=== PATIENT | male | born 1950 | race Caucasian/White ===

== ENCOUNTER 2017-02-22 17:50 | Inpatient (IN) ==
[2017-02-22] MEDS ORDERED: Naloxone 0.4 MG/ML INJ IVP PRN (20:21)
[2017-02-22] MEDS ORDERED: Ondansetron 4 MG/2 ML VIAL IVP PRN (20:21)
[2017-02-22] MEDS ORDERED: Dextrose Gel 15 GM/37.5 ML TUBE PO PRN ×2 (20:25)
[2017-02-22] MEDS ORDERED: Ipratropium/Albuterol Neb 3 ML IH PRN (20:25)
[2017-02-22] MEDS ORDERED: D5% in Water 1,000 ML IVC PRN (20:25)
[2017-02-22] MEDS ORDERED: *HR* Dextrose 50 % in Water (Syg) 50 ML SYRINGE IVP PRN (20:25)
--- NOTE | 2017-02-22 20:39 | Internal Med History&Physical ---
Date of Encounter: 02/22/17 Time of Encounter: 19:50 Assessment and Plan (1) Multifocal pneumonia Current visit: Yes Status: Acute CT findings from [place] [facility] positive for Multifocal PNA will continue broad spectrum IV abx (Vanco and Zosyn) f/u (2) Cirrhosis of liver Current visit: Yes Status: Chronic Pt reports of following a medical typist at [facility] will consult IR for paracentesis (day team to call IR) holding lasix and spironolactone at this time given ADRINE Qualifiers: Hepatic cirrhosis type: unspecified hepatic cirrhosis Ascites presence: with ascites Qualified Code(s): K74.60 - Unspecified cirrhosis of liver (3) Ascites Current visit: Yes Status: Acute secondary to cirrhosis of the liver last paracentesis was on 01.24.17 paracentesis by IR in am Qualifiers: Ascites type: other type Qualified Code(s): R18.8 - Other ascites (4) Acute kidney injury superimposed on chronic kidney disease Current visit: Yes Status: Acute Unclear of patient's baseline renal function noted to have worsening of creatinine as per [facility] records will hold Lasix, spironolactone at this time renally dose antibiotics closely monitor renal function, if deteriorates further, consult nephrology (5) Atrial fibrillation Current visit: Yes Status: Chronic Rate controlled with Metoprolol Anticoagulated with Eliquis holding eliquis at this time given report of positive stool occult at [place] Will repeat Stool occult consider GI evaluation if stool occult positive Pt reported of undergoing EGD last month which was negative for varices at that time. Qualifiers: Atrial fibrillation type: chronic Qualified Code(s): I48.2 - Chronic atrial fibrillation (6) DVT prophylaxis Current visit: Yes Status: Acute SCD (7) Hyperkalemia Current visit: Yes Status: Acute Pt reported of having K of 6.5 upon admission, repeat down to 5.5, received Kayxelate at [facility] prior to transfer currently has a rectal tube will continue to closely monitor (8) Anemia Current visit: Yes Status: Acute H&H low but acceptable no acute bleeding reported at this time will continue to closely monitor f/u stool occult, iron studies, vit B12, and folate Qualifiers: Anemia type: unspecified type Qualified Code(s): D64.9 - Anemia, unspecified (9) Obesity (BMI 30-39.9) Current visit: Yes Status: Chronic Internal Medicine - H&P: HPI Chief complaint: transfer from [place] for PNA Admitted From: Intrahospital Transfer Plans for Post Hospital Care: Home History of present illness: Mr. Romero is a 66 year old male with PMH Of cirrhosis of the liver, liver tumor , HTN, HLD, Afib on Eliquis, DM, CKD, and CVA with left sided weakness who was transferred to [facility] from [facility] [place] for management of multifocal PNA, worsening ascites. Pt reports of presenting to the [place] ER yesterday for shortness of breath and worsening abd pain secondary to ascites. Pt reports of having his last paracentesis on January 24, and reports of following with a medical typist at [facility] for his liver tumor. He is AAO x 3, saturating well on nasal cannula and denies any discomfort. Noted to have large ascites and will need paracentesis. Noted to be hypotensive but clinically asymptomatic. He denies any chest pain, fever, or chills at this time. Pt's code status is changed to DNR/DNI as per his wishes Labs from [place] prior to transfer: WBC: 5.4 PT: 11.8 Hgb: 10.0 INR: 1.13 Hct: 31.9 PTT: 26.8 Plt: 198 Na: 141 K: 5.5 Cl: 111 CO2: 17 BUN: 72 Crea: 3.03 (worsened from previous day: 2.75) Gluc: 94 Stool Occult: Positive CT abd/pelvis: -lg vol ascites -sm. b/l pleural effusions -patchy consolidations-multifocal pneumonia -cirrhosis with multiple small hypodense hepatic lesions, infiltrative mass, malignancy cannot be excluded on right lobe. MRI recommended. Past Med Surg Social Fam HX - Past Medical History Medical history: asthma, atrial fibrillation, cirrhosis, CVA, diabetes, hypertension, liver disease Psychiatric history: no psych history - Social History Smoking Status: Former smoker Alcohol use: none Drug use: none - Family History Mother Adopted: No Living Status: Cause of : HEART ATTACK Internal Medicine - H&P: Meds Albuterol Sulfate [Ventolin Hfa] 18 gm IH Q4HR PRN 02/22/17 [History] Amlodipine Besylate 10 mg PO DAILY 02/22/17 [History] Ammonium Lactate 140 gm TP DAILY 02/22/17 [History] Apixaban [Eliquis] 5 mg PO BID 02/22/17 [History] Atorvastatin Calcium 20 mg PO DAILY 02/22/17 [History] Budesonide/Formoterol 160/4.5 [Symbicort 160/4.5] 2 puff IH BIDR 02/22/17 [ History] Cetirizine HCl [Zyrtec] 10 mg PO DAILY 02/22/17 [History] FLUoxetine HCl [Prozac] 40 mg PO DAILY 02/22/17 [History] Famotidine [Pepcid] 20 mg PO DAILY 02/22/17 [History] Fluorouracil [Efudex] 1 gm TP BID 02/22/17 [History] Fluticasone Propionate Nasal [Flonase] 2 mcg NS DAILY 02/22/17 [History] Furosemide [Lasix] 20 mg PO BID 02/22/17 [History] Metoprolol [Lopressor] 25 mg PO BID 02/22/17 [History] Sotalol [Betapace] 80 mg PO Q12HR 02/22/17 [History] Spironolactone [Aldactone] 50 mg PO DAILY 02/22/17 [History] Tamsulosin [Flomax] 0.4 mg PO DAILY 02/22/17 [History] Triamcinolone Acetonide 15 gm TP BID 02/22/17 [History] 3 Allergy/AdvReac Type Severity Reaction Status Date / Time naproxen Allergy Intermediate BLISTERS Verified 02/22/17 20:29 All Systems PM: A 10-system review of systems was performed and is negative for pertinent findings except as documented above in the HPI. - Constitutional Constitutional: as per HPI - Constitutional General appearance: Present: A&O X 3, no acute distress, obese - Head Head exam: Present: atraumatic, normocephalic - Eye Eye exam: Present: conjuntiva pink, sclera anicteric - Respiratory Respiratory exam: Present: decreased breath sounds. Absent: respiratory distress, wheezes - Cardiovascular Cardiovascular exam: Present: RRR, +S1, +S2. Absent: diastolic murmur, systolic murmur - GI/Abdominal GI/Abdominal exam: Present: distended (large ascites with a positve fluid shift ), normal bowel sounds, soft, no peritoneal signs. Absent: tenderness - Extremities Exam Extremities exam: Present: warm, radial pulses palpable and symmetrical. Absent : calf tenderness, pedal edema - Neurological Exam Neurological exam: Present: alert, oriented X3
[2017-02-22] MEDS ORDERED: Vancomycin 1,000 MG in D5% in Water 250 ML IVPB SCH (21:00)
[2017-02-22] MEDS ORDERED: Piperacillin/Tazobactam 3.375 GM/200 ML BAG IVPB SCH (23:00)
[2017-02-23] MEDS ORDERED: Vancomycin 1,750 MG in D5% in Water 500 ML IVPB ONE (01:00)
[2017-02-23 03:52] LABS: Hematocrit 31.7 % (37.5-50.1); Immature Granulocytes % 0.3 % (0-4); Lymphocytes # 1.3 K/mcL (0.6-4.6); Lymphocytes % 19.6 %; Mean Corpuscular HGB Conc 31.5 g/dL (31.6-35.5); Mean Corpuscular Hemoglobin 28.7 pg (28.0-33.3); Mean Corpuscular Volume 91.1 fL (83.0-100.0); Mean Platelet Volume 10.7 fL (9.4-12.4); Monocytes # 0.6 K/mcL (0.0-1.3); Monocytes % 8.5 %; Neutrophils # 4.6 K/mcL (1.6-8.9); Platelet Count 191 K/mcL (140-400); Red Blood Count 3.48 M/mcL (4.19-5.50); Red Cell Distribution Width 17.3 % (11.5-14.5); Segmented Neutrophils % 71.6 %
[2017-02-23 04:29] LABS: Folate 7.6 ng/mL (3.0-16.0)
[2017-02-23 04:32] LABS: % Iron Saturation 30 % (20-55); Alanine Aminotransferase 29 Units/L (7-52); Albumin 2.8 g/dL (3.5-5.7); Albumin/Globulin Ratio 1.1 (1.1-2.2); Alkaline Phosphatase 511 Units/L (34-104); Aspartate Amino Transferase 80 Units/L (13-39); BUN/Creatinine Ratio 23 (6-26); Blood Urea Nitrogen 74 mg/dL (8-23); Calcium 7.8 mg/dL (8.6-10.3); Carbon Dioxide 18 mEq/L (23-29); Chloride 114 mEq/L (98-107); Globulin 2.5 g/dL (2.4-3.5); Glucose 113 mg/dL (70-105); Iron 45 mcg/dL (65-175); Magnesium 2.8 mg/dL (1.6-2.6); Osmolality,Calculated 311 (280-300); Phosphorous 4.5 mg/dL (2.7-4.5); Potassium 5.3 mEq/L (3.5-5.1); Sodium 139 mEq/L (136-145); Total Protein 5.3 g/dL (6.4-8.9); Transferrin 106 mg/dL (203-362); eGFR For African Americans 24 (> 60); eGFR For Non-African Americans 20 (> 60)
[2017-02-23 05:23] LABS: Ferritin > 1350 ng/ml (20-250)
[2017-02-23] MEDS: Insulin LISPRO 300 UNITS/3 ML VIAL SQ SCH ×5 (05:28→21:22)
[2017-02-23] MEDS: Budesonide/Formoterol 160/4.5 MDI IH SCH ×2 (07:37→20:39)
[2017-02-23] MEDS ORDERED: Aminoglycoside Consult 1 EACH MC ONE (08:05)
[2017-02-23] MEDS: Fluticasone Propionate Nasal 50 MCG/SPRAY BOTTLE NS SCH (08:23)
[2017-02-23] MEDS: Ammonium Lactate 30 APPL/225 GM BOTTLE TP SCH (08:23)
[2017-02-23] MEDS: FLUoxetine 20 MG CAPSULE PO SCH (08:24)
[2017-02-23] MEDS: Loratadine 10 MG TABLET PO SCH (08:24)
[2017-02-23] MEDS: Famotidine 20 MG TABLET PO SCH (08:24)
[2017-02-23] MEDS: FLUOROURACIL TP SCH ×2 (08:25→21:22)
[2017-02-23] MEDS ORDERED: amLODIPine 5 MG TABLET PO SCH (09:00)
--- NOTE | 2017-02-23 11:22 | Internal Med Progress Note ---
<Trenton Parkinson - Last Filed: 02/23/17 13:32> Date of Encounter: 02/23/17 Time of Encounter: 11:20 - Assessment and plan (1) Multifocal pneumonia Current Visit: Yes Status: Acute Assessment and plan: CT scan from [place] demonstrate multifocal PNA No leukocytosis VSS Diffuse rhonchi present Plan: Broad coverage with IV Vanocmycin and Zosyn Duonebs PAVAN Albuterol Nebs PRN (2) Cirrhosis of liver Current Visit: Yes Status: Chronic Assessment and plan: PT/INR/PTT at [facility] are 11.8/1.13/26.8 CT scan at [place] showing cirrhosis with multiple small hypodense hepatic lesions, infiltrative mass, malignancy cannot be excluded on right lobe. Pt reports of following a sanforizing machine operator at [facility] - Called office and spoke with digital production operator to have his specialist call me when available to discuss disposition Consulted IR for paracentesis - Will perform today Holding lasix and spironolactone at this time given ADRIEN Checking Ammonia level Qualifiers: Hepatic cirrhosis type: unspecified hepatic cirrhosis Ascites presence: with ascites Qualified Code(s): K74.60 - Unspecified cirrhosis of liver (3) Ascites Current Visit: Yes Status: Acute Assessment and plan: CT scan at [place] and physical exam demonstrate massive ascites Plan IR paracentesis performed today Qualifiers: Ascites type: other type Qualified Code(s): R18.8 - Other ascites (4) Acute kidney injury superimposed on chronic kidney disease Current Visit: Yes Status: Acute Assessment and plan: Unknown baseline renal function Cr trending 2.75 -> 3.01 -> 3.2 today With worsening kidney function, nephrology was consulted. Appreciate recommendations Continue to hold nephrotoxic agents Retroperitoneal kidney US ordered Labs - UA w/ Cx, protein electrophoresis, vit d, urine sodium, microalbumin and protein creatinine Plan for paracentesis today if ascites if worsening liver congestion and affecting kidneys Will recheck in the morning (5) Pressure ulcer, stage 1 Current Visit: Yes Status: Acute Assessment and plan: Conservative management Keep moisturized Pressure reduction Q2 hour turns Qualifiers: Pressure ulcer location: thigh Laterality: left Qualified Code(s): L89.221 - Pressure ulcer of left hip, stage 1 (6) Atrial fibrillation Current Visit: Yes Status: Chronic Assessment and plan: Holding anticoagulation d/t positive stool occult at [place] - Repeat Stool occult pending Continue Sotalol Telemetry Qualifiers: Atrial fibrillation type: chronic Qualified Code(s): I48.2 - Chronic atrial fibrillation (7) Hyperkalemia Current Visit: Yes Status: Acute Assessment and plan: K dropping well 6.5 -> 5.5 -> 5.[address] Will continue to monitor (8) Anemia Current Visit: Yes Status: Acute Assessment and plan: Hgb stable at 10.0. Unchanged from [place] yesterday Hemodynamically stable Likely d/t chronic disease with CKD Repeat stool occult pending - GI consult if positive - Recent EGD showed no esophageal varices Workup neg for folate or B12 deficiency Iron studies indicate chronic disease with his elevated ferritin from cirrhosis Will continue to monitor Qualifiers: Anemia type: unspecified type Qualified Code(s): D64.9 - Anemia, unspecified (9) Diarrhea Current Visit: Yes Status: Acute Assessment and plan: Rectal tube in place Ordered C diff Qualifiers: Diarrhea type: unspecified type Qualified Code(s): R19.7 - Diarrhea, unspecified (10) Obesity (BMI 30-39.9) Current Visit: Yes Status: Chronic (11) DVT prophylaxis Current Visit: Yes Status: Acute Assessment and plan: EPCDs, holding anticoagulation d/t positive stool occult at [place] - Subjective Interval history: Patient is admitted for mulitfocal PNA, ADRIEN and Ascites Patient is resting comfortably in bed this morning His SOB is mildly improved but still complains of abdominal discomfort with a "fullness" feeling No overnight events per nursing He denies any CP, fevers, chills, n/v, palpitations or GI issues - Constitutional Vitals: Temp Pulse Resp BP Pulse Ox 98.1 F 68 18 91/59 95 02/23/17 07:18 02/23/17 08:40 02/23/17 10:54 02/23/17 10:54 02/23/17 10:54 General appearance: Present: cooperative, A&O X 3, no acute distress, obese - Head Head exam: Present: atraumatic, normocephalic - Eye Eye exam: Present: EOMI, normal appearance, conjuntiva pink, sclera anicteric - ENT ENT exam: Present: mucous membranes moist - Neck Neck exam general surgery: Present: supple, trachea midline - Respiratory Respiratory exam: Present: rhonchi (scattered). Absent: accessory muscle use, chest wall tenderness, respiratory distress, wheezes, tachypnea - Cardiovascular Cardiovascular exam: Present: RRR, +S1, +S2 - GI/Abdominal GI/Abdominal exam: Present: diminished bowel sounds, distended, firm. Absent: guarding, tenderness - Expanded GI/Abdominal Exam GI/Abdominal exam expanded: Present: ascites - Extremities Exam Extremities exam: Present: pedal edema (trace), warm. Absent: calf tenderness, tenderness - Neurological Exam Neurological exam: Present: alert, oriented X3, no focal deficits - Psychiatric Psychiatric exam: Present: normal affect, normal mood - Skin Skin exam: Present: dry, warm. Absent: diaphoretic Additional comments: stage 1 pressure ulcer present on lateral left thigh Internal Medicine: Result - Labs CBC & Chem 7: 02/23/17 03:38 02/23/17 03:38 Labs: Short CBC 02/23/17 Range/Units 03:38 WBC 6.5 (4.3-11.1) K/mcL Hgb 10.0 L (12.9-16.9) g/dL Hct 31.7 L (37.5-50.1) % Plt Count 191 (140-400) K/mcL Neutrophils # 4.6 (1.6-8.9) K/mcL BMP 02/23/17 03:38 Sodium 139 Potassium 5.3 H Chloride 114 H Carbon Dioxide 18 L BUN 74 H Creatinine 3.20 H Glucose 113 H Calcium 7.8 L Liver Function 02/23/17 Range/Units 03:38 Total Bilirubin 1.0 (0.3-1.0) mg/dL AST 80 H (13-39) Units/L ALT 29 (7-52) Units/L Alkaline Phosphatase 511 H (34-104) Units/L Albumin 2.8 L (3.5-5.7) g/dL - VTE Documentation of Mechanical Device: Intermittent pneumatic compression device Consult Discharge Plan - Plan Referrals: Jose Alberto Benton, [facility] [Primary Care Provider] - <Jessika Vasquez - Last Filed: 02/23/17 14:46> Date of Encounter: 02/23/17 - Constitutional Vitals: Temp Pulse Resp BP Pulse Ox 97.9 F 67 20 97/69 93 02/23/17 11:00 02/23/17 14:08 02/23/17 14:08 02/23/17 12:34 02/23/17 14:08 Internal Medicine: Result - Labs CBC & Chem 7: 02/23/17 03:38 02/23/17 03:38 Labs: Short CBC 02/23/17 Range/Units 03:38 WBC 6.5 (4.3-11.1) K/mcL Hgb 10.0 L (12.9-16.9) g/dL Hct 31.7 L (37.5-50.1) % Plt Count 191 (140-400) K/mcL Neutrophils # 4.6 (1.6-8.9) K/mcL BMP 02/23/17 03:38 Sodium 139 Potassium 5.3 H Chloride 114 H Carbon Dioxide 18 L BUN 74 H Creatinine 3.20 H Glucose 113 H Calcium 7.8 L Liver Function 02/23/17 Range/Units 03:38 Total Bilirubin 1.0 (0.3-1.0) mg/dL AST 80 H (13-39) Units/L ALT 29 (7-52) Units/L Alkaline Phosphatase 511 H (34-104) Units/L Albumin 2.8 L (3.5-5.7) g/dL - Attending Attestation I examined this patient and my medical decision-making was reviewed with the Resident Physician Dr. Parkinson. I agree with the documented findings, disposition and treatment plan as described except to the extent set forth below. Mr. Romero is a 66 year old male with PMH Of cirrhosis of the liver, liver tumor , HTN, HLD, Afib on Eliquis, DM, CKD, and CVA with left sided weakness who was transferred to [facility] from [facility] for management of multifocal PNA, worsening ascites. Pt reports of having his last paracentesis on January 24, and reports of following with a sanforizing machine operator at [facility] for his liver tumor. He is still c/o SOB and ONEAL. Denied any CP. Gen: Mild distress due to distended abdomen, A, A, O x 3 Heart; S1S2+ RRR No murmurs Abd: Soft, NT, Distended Chest: Diminished BS b/l basal regions, No crackles a/p 1. Acute Multi focal Pneumonia Mostly bacterial..high risk for aspiration too cont empirical abx Zosyn d.c Vancomycin Cont Bronchodilators 2. Severe ascities 3. Hepatic tumor / Cirrhosis liver need urgent theraputic paracentesis Spoke to IR, planning on doing paracentesis later today will give him 75-100 Gm Albumin depending on how much fluid taken out 4. Paroxysmal A fib rate controlled held eliquis for Paracentesis 5. ADRIEN with ?? CKD-3 No previous labs to compare Nephro on board held diuretics
[2017-02-23] MEDS: Piperacillin/Tazobactam 3.375 GM/200 ML BAG IVPB SCH (12:44)
--- NOTE | 2017-02-23 12:57 | Nephrology Consult Note ---
Date of Encounter: 02/23/17 Time of Encounter: 12:54 Assessment and Plan (1) ADRIEN (acute kidney injury) Current Visit: Yes Status: Acute Patient with acute kidney injury. Baseline creatinine is unknown, but he and his deny being told they have kidney problems. The etiology at this time is likely intravascular volume depletion/pre-renal azotemia given his history of poor po intake and increased diarrhea. Will check UA, urine sodium/FeNa I recommend giving albumin with the paracentesis and avoiding large volume paracentesis for now (remove enough fluid for comfort). I also recommend adding Low volume intravenous saline. Although he doesn't meet criteria for hepato renal at this time, with his low blood pressure he may benefit from albumin and midodrine. Renal ultrasound ordered. Avoid nephrotoxins (hold diuretics). Adjust medications for renal function. Will add intravenous sodium bicarbonate for metabolic acidosis. (2) Anemia Current Visit: Yes Status: Acute Iron stores, vitamin b12 and folate are adequate. Monitor for bleeding. Qualifiers: Anemia type: unspecified type Qualified Code(s): D64.9 - Anemia, unspecified (3) Hyperkalemia Current Visit: Yes Status: Acute Mild Monitor for now. (4) Multifocal pneumonia Current Visit: Yes Status: Acute Per primary team. Antibiotics as needed. (5) Atrial fibrillation Current Visit: Yes Status: Chronic Rate is controlled. Qualifiers: Atrial fibrillation type: chronic Qualified Code(s): I48.2 - Chronic atrial fibrillation (6) Cirrhosis of liver Current Visit: Yes Status: Chronic Patient with ascites. Recommend low volume paracentesis with albumin secondary to his acute kidney injury. Qualifiers: Hepatic cirrhosis type: unspecified hepatic cirrhosis Ascites presence: with ascites Qualified Code(s): K74.60 - Unspecified cirrhosis of liver (7) Obesity (BMI 30-39.9) Current Visit: Yes Status: Chronic Per primary team. History of Present Illness - Reason for Consult Consult date: 02/23/17 Acute Kidney Injury - Chief Complaint ADRIEN - History of Present Illness Mr. Romero is a 66 yo man with a history of cirrhosis who transferred from an outside hospital for the management of worsening ascites. He was found to have acute kidney injury at the outside hospital that has gotten worse since his admission. The history was from the patient and his at his bedside. The patient has not been feeling well for about a week and has had decreased appetite with increased diarrhea. He denies nausea or vomiting. He has had increased lower extremity swelling and increased abdominal swelling. His review of systems otherwise is stable. Past Med Surg Social Fam HX - Past Medical History Medical history: asthma, atrial fibrillation, cirrhosis, CVA, diabetes, hypertension, liver disease Psychiatric history: no psych history - Social History Smoking Status: Former smoker Alcohol use: none Drug use: none - Family History Mother Adopted: No Living Status: Cause of : HEART ATTACK Medications and Allergies Albuterol Sulfate [Ventolin Hfa] 18 gm IH Q4HR PRN 02/22/17 [History] Amlodipine Besylate 10 mg PO DAILY 02/22/17 [History] Ammonium Lactate 140 gm TP DAILY 02/22/17 [History] Apixaban [Eliquis] 5 mg PO BID 02/22/17 [History] Atorvastatin Calcium 20 mg PO DAILY 02/22/17 [History] Budesonide/Formoterol 160/4.5 [Symbicort 160/4.5] 2 puff IH BIDR 02/22/17 [ History] Cetirizine HCl [Zyrtec] 10 mg PO DAILY 02/22/17 [History] FLUoxetine HCl [Prozac] 40 mg PO DAILY 02/22/17 [History] Famotidine [Pepcid] 20 mg PO DAILY 02/22/17 [History] Fluorouracil [Efudex] 1 gm TP BID 02/22/17 [History] Fluticasone Propionate Nasal [Flonase] 2 mcg NS DAILY 02/22/17 [History] Furosemide [Lasix] 20 mg PO BID 02/22/17 [History] Metoprolol [Lopressor] 25 mg PO BID 02/22/17 [History] Sotalol [Betapace] 80 mg PO Q12HR 02/22/17 [History] Spironolactone [Aldactone] 50 mg PO DAILY 02/22/17 [History] Tamsulosin [Flomax] 0.4 mg PO DAILY 02/22/17 [History] Triamcinolone Acetonide 15 gm TP BID 02/22/17 [History] 3 Allergy/AdvReac Type Severity Reaction Status Date / Time naproxen Allergy Intermediate BLISTERS Verified 02/22/17 20:29 Review of Systems All Systems: reviewed and no additional remarkable complaints except as stated ( as documented in the HPI.) Exam - Vital Signs Vital signs: Initial Vital Signs Temp Pulse Resp BP Pulse Ox 98.1 F 71 17 95/65 93 02/22/17 20:41 02/22/17 20:41 02/22/17 20:41 02/22/17 20:41 02/22/17 20:41 Vital Signs - Last 8 Hours Temp Pulse Resp BP Pulse Ox 02/23/17 12:36 64 02/23/17 12:34 64 20 97/69 95 02/23/17 11:00 97.9 F 64 23 83/68 95 02/23/17 10:54 18 91/59 95 02/23/17 08:40 68 02/23/17 07:37 20 93 02/23/17 07:18 98.1 F 69 20 87/56 93 02/23/17 05:06 97.7 F 74 18 93/56 92 02/23/17 05:00 88/53 Intake and Output 02/22/17 02/23/17 02/23/17 23:59 07:59 15:59 Intake Total 0 / 0 700 / 700 Output Total 0 / 0 20 / 20 265 / 265 Balance 0 / 0 680 / 680 -265 / -265 Intake: IV Fluids 700 / 700 Zosyn Premix 3.375 GM/200 ML 3. 200 / 200 375 gm In 200 ml @ 50 mls/hr IVPB Q8H [facility] Rx#:[id number] Vancocin 1,750 MG In Dextrose 5 500 / 500 % 500 ML @ 333.333 mls/hr IVPB ONCE ONE Rx#:[id number] Oral 0 / 0 0 / 0 Output: Stool 40 / 40 Catheter 0 / 0 20 / 20 225 / 225 Urethral ([place]) 50 / 50 Other: Weight 123 kg Blood Glucose* 104 101 106 - General Appearance General appearance: well-developed, well-nourished, chronically ill EENT: ATNC Neck: supple Respiratory: clear Cardiology: edema (2+ edema bilateral lower extremities. ), regular rate, regular rhythm Gastrointestinal: normoactive bowel sounds, no tenderness, obese, distended Integumentary: warm and dry Neurologic: alert and oriented x3 Musculoskeletal: no cyanosis Psychiatric: mood/affect appropriate Results - Lab Results 02/23/17 03:38 02/23/17 03:38 Most recent lab results Calcium 7.8 mg/dL (8.6-10.3) L 02/23/17 03:38 Phosphorus 4.5 mg/dL (2.7-4.5) 02/23/17 03:38 Magnesium 2.8 mg/dL (1.6-2.6) H 02/23/17 03:38 Consult Discharge Plan - Plan Referrals: Jose Alberto Benton CNP [Primary Care Provider] -
[2017-02-23] MEDS ORDERED: Vancomycin 1,250 MG in D5% in Water 250 ML IVPB SCH (13:00)
[2017-02-23] MEDS ORDERED: Albumin 25% 25gram/100mL 25 GM/100 ML IV.SOLN IVPB ONE (14:52)
--- NOTE | 2017-02-23 14:54 | IR Procedure Note ---
Date of procedure: 02/23/17 Consent Obtained: Verbal consent, Written consent Timeout: Correct patient and procedure verified, Correct site verified, Time out performed, Skin prep completed Local anesthetic: Lidocaine 1% Indications: Ascites Procedure Performed: Paracentesis Was there an activity assistant present: No Site/Technique: U/S guided paracentesis Results/Findings: Large ascites Estimated blood loss (cc): 2 Complications: None; Tolerated procedure well Post Procedure Treatment Plan: Continue inpatient care Specimen: serous ascites
[2017-02-23] MEDS ORDERED: Sodium Bicarbonate 150 MEQ in D5% in Water 1,000 ML IVC ONE (15:07)
[2017-02-23 16:20] LABS: Bilirubin,Urine Small (Negative); Blood,Urine Large (Negative); Clarity,Urine Turbid (Clear); Color,Urine Dark Yellow (Yellow); Glucose,Urine (UA) Normal (Normal); Ketones,Urine Negative (Negative); Leukocyte Esterase,Urine Moderate (Negative); Nitrite,Urine Negative (Negative); PH,Urine 5.5 pH Units (5.0-8.0); Protein,Urine 100 mg/dL (Neg-Trace); Specific Gravity,Urine 1.026 (1.010-1.025); Urobilinogen,Urine Normal (Normal)
[2017-02-23 16:23] LABS: Bacteria,Urine None Seen per hpf (None-Few); RBC,Urine 15-30 per hpf (0-3); Squamous Epithelial Cell,Urine Many per lpf (None-Few); WBC,Urine 30-50 per hpf (0-3)
[2017-02-23 16:42] LABS: Protein/Creatinine Ratio,Urine 0.59 mg/mg (0.00-0.20); Sodium, Urine 18.4 mEq/L
[2017-02-23] MEDS: Albumin 25% 25gram/100mL 25 GM/100 ML IV.SOLN IVPB SCH ×2 (19:42→23:37)
[2017-02-24] MEDS: Piperacillin/Tazobactam 3.375 GM/200 ML BAG IVPB SCH ×2 (01:20→11:42)
[2017-02-24] MEDS: Albumin 25% 25gram/100mL 25 GM/100 ML IV.SOLN IVPB SCH (03:55)
[2017-02-24 06:46] LABS: Eosinophils % 0.6 %; Hemoglobin 9.4 g/dL (12.9-16.9); Immature Granulocytes % 0.2 % (0-4); Lymphocytes % 19.4 %; Mean Corpuscular HGB Conc 32.4 g/dL (31.6-35.5); Mean Corpuscular Hemoglobin 29.4 pg (28.0-33.3); Mean Corpuscular Volume 90.6 fL (83.0-100.0); Mean Platelet Volume 10.8 fL (9.4-12.4); Monocytes # 0.3 K/mcL (0.0-1.3); Monocytes % 6.7 %; Neutrophils # 3.6 K/mcL (1.6-8.9); Platelet Count 132 K/mcL (140-400); Red Cell Distribution Width 17.2 % (11.5-14.5); Segmented Neutrophils % 73.1 %
[2017-02-24 07:25] LABS: Albumin/Globulin Ratio 1.6 (1.1-2.2); Bilirubin,Total 1.3 mg/dL (0.3-1.0); Calcium 7.6 mg/dL (8.6-10.3); Globulin 1.9 g/dL (2.4-3.5); Potassium 4.8 mEq/L (3.5-5.1); Total Protein 4.9 g/dL (6.4-8.9)
--- NOTE | 2017-02-24 07:40 | Internal Med Progress Note ---
<Trenton Parkinson - Last Filed: 02/24/17 13:54> Date of Encounter: 02/24/17 Time of Encounter: 07:40 - Assessment and plan (1) Multifocal pneumonia Current Visit: Yes Status: Acute Assessment and plan: CT scan from [place] demonstrate multifocal PNA No leukocytosis VSS Bibasilar crackles present Plan: De-escalating to only Zosyn Duonebs PAVAN Albuterol Nebs PRN Clinically improving (2) Cirrhosis of liver Current Visit: Yes Status: Chronic Assessment and plan: PT/INR/PTT at [place] are 11.8/1.13/26.8 CT scan at [place] showing cirrhosis with multiple small hypodense hepatic lesions, infiltrative mass, malignancy cannot be excluded on right lobe. Pt reports of following a pump room operator at [facility] - Called office and spoke with iron launder operator to have his specialist call me when available to discuss disposition Paracentesis yesterday - 15L off [place]monia trending down 60 ->55 Qualifiers: Hepatic cirrhosis type: unspecified hepatic cirrhosis Ascites presence: with ascites Qualified Code(s): K74.60 - Unspecified cirrhosis of liver (3) Ascites Current Visit: Yes Status: Acute Assessment and plan: Paracentesis was performed by IR yesterday 15,000cc peritoneal fluid was removed 100g Albumin was given Qualifiers: Ascites type: other type Qualified Code(s): R18.8 - Other ascites (4) Acute kidney injury superimposed on chronic kidney disease Current Visit: Yes Status: Acute Assessment and plan: Unknown baseline renal function Cr trending 2.75 -> 3.01 -> 3.2 -> 3.28 today Nephrology was consulted. Appreciate recommendations Continue to hold nephrotoxic agents Retroperitoneal kidney US unremarkable without hydronephrosis FENa 0.26 and urine specific gravity elevated - Adding IVF (5) Pressure ulcer, stage 1 Current Visit: Yes Status: Acute Assessment and plan: Conservative management Keep moisturized Pressure reduction Q2 hour turns Qualifiers: Pressure ulcer location: thigh Laterality: left Qualified Code(s): L89.221 - Pressure ulcer of left hip, stage 1 (6) Atrial fibrillation Current Visit: Yes Status: Chronic Assessment and plan: Restarting eliquis Continue Sotalol Telemetry HR NSR in 70s Qualifiers: Atrial fibrillation type: chronic Qualified Code(s): I48.2 - Chronic atrial fibrillation (7) Hyperkalemia Current Visit: Yes Status: Acute Assessment and plan: K dropping well 6.5 -> 5.5 -> 5.3 -> 4.8 D/c rectal tube Will continue to monitor (8) Anemia Current Visit: Yes Status: Acute Assessment and plan: Hgb stable at 9.4 Hemodynamically stable Likely d/t chronic disease with CKD Repeat stool occult negative Workup neg for folate or B12 deficiency Iron studies indicate chronic disease with his elevated ferritin from cirrhosis Will continue to monitor Qualifiers: Anemia type: unspecified type Qualified Code(s): D64.9 - Anemia, unspecified (9) Obesity (BMI 30-39.9) Current Visit: Yes Status: Chronic (10) DVT prophylaxis Current Visit: Yes Status: Acute Assessment and plan: EPCDs, restarting eliquis - Subjective Interval history: Patient is admitted for mulitfocal PNA, ADRIEN and Ascites Patient is resting comfortably in bed this morning His SOB is moderately improved and feels much better after having 15L peritoneal fluid removed No overnight events per nursing He denies any CP, fevers, chills, n/v, palpitations or GI issues - Constitutional Vitals: Temp Pulse Resp BP Pulse Ox 97.8 F 72 17 116/75 93 02/24/17 04:21 02/24/17 04:21 02/24/17 04:21 02/24/17 04:21 02/24/17 04:21 General appearance: Present: cooperative, A&O X 3, no acute distress, obese - Head Head exam: Present: atraumatic, normocephalic - Eye Eye exam: Present: EOMI, normal appearance, conjuntiva pink, sclera anicteric - ENT ENT exam: Present: mucous membranes moist - Neck Neck exam general surgery: Present: supple, trachea midline - Respiratory Respiratory exam: Absent: respiratory distress, wheezes Additional comments: bibasilar crackles - Cardiovascular Cardiovascular exam: Present: RRR, +S1 - GI/Abdominal GI/Abdominal exam: Present: diminished bowel sounds, distended, soft. Absent: tenderness - Expanded GI/Abdominal Exam GI/Abdominal exam expanded: Present: ascites - Extremities Exam Extremities exam: Present: pedal edema (1+ pitting), warm. Absent: tenderness - Neurological Exam Neurological exam: Present: alert, oriented X3, no focal deficits - Psychiatric Psychiatric exam: Present: normal affect, normal mood - Skin Skin exam: Present: dry, warm Additional comments: stage 1 pressure ulcer present on lateral left thigh Internal Medicine: Result - Labs CBC & Chem 7: 02/24/17 06:37 02/24/17 06:37 Labs: Short CBC 02/24/17 Range/Units 06:37 WBC 5.0 (4.3-11.1) K/mcL Hgb 9.4 L (12.9-16.9) g/dL Hct 29.0 L (37.5-50.1) % Plt Count 132 L (140-400) K/mcL Neutrophils # 3.6 (1.6-8.9) K/mcL BMP 02/24/17 06:37 Sodium 139 Potassium 4.8 Chloride 111 H Carbon Dioxide 19 L BUN 76 H Creatinine 3.28 H Glucose 93 Calcium 7.6 L Liver Function 02/24/17 Range/Units 06:37 Total Bilirubin 1.3 H (0.3-1.0) mg/dL AST 93 H (13-39) Units/L ALT 40 (7-52) Units/L Alkaline Phosphatase 474 H (34-104) Units/L Albumin 3.0 L (3.5-5.7) g/dL Urine 02/23/17 Range/Units 15:39 Urine Color Dark Yellow (Yellow) Urine Clarity Turbid A (Clear) Urine pH 5.5 (5.0-8.0) pH Units Ur Specific [place] 1.026 H (1.010-1.025) Urine Protein 100 H (Neg-Trace) mg/dL Urine Glucose (UA) Normal (Normal) mg/dL - Impressions Impressions Paracentesis Ultrasound 02/23/17 00:00 IMPRESSION: Successful ultrasound guided paracentesis. D/ / Paulino Basurto MD / Paulino Basurto MD Interpreting Provider: Paulino Basurto MD Retroperitoneum Ultrasound 02/23/17 14:12 IMPRESSION: No hydronephrosis. Incidentally noted is a cirrhotic appearance of the liver with ascites in the upper quadrant bilaterally. D/ / 02/23/2017 17:35:56 Mike Manzano MD / curt Interpreting Provider: Mike Manzano MD - VTE Documentation of Mechanical Device: Intermittent pneumatic compression device Consult Discharge Plan - Plan Referrals: Jose Alberto Benton, FILLING [employer] [Primary Care Provider] - <Jessika Vasquez - Last Filed: 02/24/17 14:52> Date of Encounter: 02/24/17 - Constitutional Vitals: Temp Pulse Resp BP Pulse Ox 97.6 F 65 18 68/49 94 02/24/17 11:52 02/24/17 13:51 02/24/17 13:51 02/24/17 13:51 02/24/17 13:51 Internal Medicine: Result - Labs CBC & Chem 7: 02/24/17 06:37 02/24/17 06:37 Labs: Short CBC 02/24/17 Range/Units 06:37 WBC 5.0 (4.3-11.1) K/mcL Hgb 9.4 L (12.9-16.9) g/dL Hct 29.0 L (37.5-50.1) % Plt Count 132 L (140-400) K/mcL Neutrophils # 3.6 (1.6-8.9) K/mcL BMP 02/24/17 06:37 Sodium 139 Potassium 4.8 Chloride 111 H Carbon Dioxide 19 L BUN 76 H Creatinine 3.28 H Glucose 93 Calcium 7.6 L Liver Function 02/24/17 Range/Units 06:37 Total Bilirubin 1.3 H (0.3-1.0) mg/dL AST 93 H (13-39) Units/L ALT 40 (7-52) Units/L Alkaline Phosphatase 474 H (34-104) Units/L Albumin 3.0 L (3.5-5.7) g/dL Urine 02/23/17 Range/Units 15:39 Urine Color Dark Yellow (Yellow) Urine Clarity Turbid A (Clear) Urine pH 5.5 (5.0-8.0) pH Units Ur Specific [place] 1.026 H (1.010-1.025) Urine Protein 100 H (Neg-Trace) mg/dL Urine Glucose (UA) Normal (Normal) mg/dL - Impressions Impressions Paracentesis Ultrasound 02/23/17 00:00 IMPRESSION: Successful ultrasound guided paracentesis. D/ / Paulino Basurto MD / Paulino Basurto MD Interpreting Provider: Paulino Basurto MD Retroperitoneum Ultrasound 02/23/17 14:12 IMPRESSION: No hydronephrosis. Incidentally noted is a cirrhotic appearance of the liver with ascites in the upper quadrant bilaterally. D/ / 02/23/2017 17:35:56 Mike Manzano MD / curt Interpreting Provider: Mike Manzano MD - Attending Attestation I examined this patient and my medical decision-making was reviewed with the Resident Physician Dr. Parkinson. I agree with the documented findings, disposition and treatment plan as described except to the extent set forth below. Mr. Romero is a 66 year old male with PMH Of cirrhosis of the liver, liver tumor , HTN, HLD, Afib on Eliquis, DM, CKD, and CVA with left sided weakness who was transferred to [facility] from [facility] for management of multifocal PNA, worsening ascites. Pt reports of having his last paracentesis on January 24, and reports of following with a pump room operator at [facility] for his liver tumor. He is still c/o SOB and ONEAL. Denied any CP. Gen: Mild distress due to distended abdomen, A, A, O x 3 Heart; S1S2+ RRR No murmurs Abd: Soft, NT, Distended Chest: Diminished BS b/l basal regions, No crackles a/p 1. Acute Multi focal Pneumonia Mostly bacterial..high risk for aspiration too cont empirical abx Zosyn Cont Bronchodilators 2. Severe ascities 3. Hepatic tumor / Cirrhosis liver s/p Paracentesis - removed 15 lit fluids Recieved 100gm Albumin stable vitals Will call his GI Dr. Luigi Vasques in AM regarding further care of plan 4. Paroxysmal A fib rate controlled with Sotalol d/c Metoprolol resume ELiquis 5. ADRIEN with ?? CKD-3 No previous labs to compare Cr trending high Nephro on board held diuretics cont IV hydration
[2017-02-24] MEDS: Insulin LISPRO 300 UNITS/3 ML VIAL SQ SCH ×4 (08:03→21:07)
[2017-02-24] MEDS: FLUOROURACIL TP SCH ×2 (08:03→21:30)
[2017-02-24] MEDS: FLUoxetine 20 MG CAPSULE PO SCH (08:23)
[2017-02-24] MEDS: Famotidine 20 MG TABLET PO SCH (08:24)
[2017-02-24] MEDS: Loratadine 10 MG TABLET PO SCH (08:25)
[2017-02-24] MEDS: Fluticasone Propionate Nasal 50 MCG/SPRAY BOTTLE NS SCH (08:26)
[2017-02-24] MEDS: Ammonium Lactate 30 APPL/225 GM BOTTLE TP SCH (08:27)
[2017-02-24] MEDS: Budesonide/Formoterol 160/4.5 MDI IH SCH ×2 (08:42→22:33)
--- NOTE | 2017-02-24 11:54 | Nephrology Progress Note ---
Date of Encounter: 02/24/17 Time of Encounter: 11:52 - Assessment and Plan (1) ADRIEN (acute kidney injury) Current Visit: Yes Status: Acute Renal function stable after paracentesis. Continue to follow to see if renal function starts to improve. Avoid nephrotoxins. Adjust medications for renal function. Not likely hepatorenal at this point. Continue to follow. (2) Anemia Current Visit: Yes Status: Acute Per primary team. Qualifiers: Anemia type: unspecified type Qualified Code(s): D64.9 - Anemia, unspecified (3) Hyperkalemia Current Visit: Yes Status: Acute Resolved. Follow potassium level. (4) Multifocal pneumonia Current Visit: Yes Status: Acute Per primary team. (5) Atrial fibrillation Current Visit: Yes Status: Chronic Heart rate is controlled. Qualifiers: Atrial fibrillation type: chronic Qualified Code(s): I48.2 - Chronic atrial fibrillation (6) Cirrhosis of liver Current Visit: Yes Status: Chronic With ascites. S/p paracentesis. Not encephalopathic. Qualifiers: Hepatic cirrhosis type: unspecified hepatic cirrhosis Ascites presence: with ascites Qualified Code(s): K74.60 - Unspecified cirrhosis of liver (7) Obesity (BMI 30-39.9) Current Visit: Yes Status: Chronic outpatient management. Subjective Principal diagnosis: ADRIEN Interval history: Patient seen. He was eating lunch. No new complaint. He feels better after paracentesis. Objective - Vital Signs Vital signs: Vital Signs Temp Pulse Resp BP Pulse Ox 02/24/17 10:01 71 18 96 02/24/17 08:13 73 02/24/17 08:08 73 16 106/68 93 02/24/17 07:55 98.4 F 77 16 110/68 93 02/24/17 04:21 97.8 F 72 17 116/75 93 02/24/17 00:09 97.7 F 82 18 110/76 94 02/23/17 22:25 69 18 103/68 93 02/23/17 20:40 18 94 02/23/17 20:22 97.9 F 73 17 108/72 95 02/23/17 18:03 97.8 F 72 16 99/58 94 02/23/17 17:52 69 18 96/53 02/23/17 17:41 70 02/23/17 15:57 67 18 97/62 95 02/23/17 15:29 69 16 87/57 95 02/23/17 15:24 69 16 87/57 95 02/23/17 14:08 67 20 93 02/23/17 12:36 64 02/23/17 12:34 64 20 97/69 95 Intake and Output 02/23/17 02/24/17 02/24/17 23:59 07:59 15:59 Intake Total 1480 / 1480 2390 / 2390 480 / 480 Output Total 145 / 145 920 / 920 245 / 245 Balance 1335 / 1335 1470 / 1470 235 / 235 Intake: IV Fluids 300 / 300 1500 / 1500 Sodium Bicarbonate 150 MEQ In 1100 / 1100 Dextrose 5% 1,000 ML @ 100 mls/ hr IVC .[id number] [facility] Rx#: [id number] Flexbumin 25 gm In 100 ml @ 60 100 / 100 200 / 200 mls/hr IVPB Q4HR [facility] Rx#: [id number] Zosyn Premix 3.375 GM/200 ML 3. 200 / 200 200 / 200 375 gm In 200 ml @ 50 mls/hr IVPB Q12H [facility] Rx#:[id number] Oral 1180 / 1180 890 / 890 480 / 480 Output: Catheter 145 / 145 920 / 920 245 / 245 Urethral ([place]) 45 / 45 Other: Meal Dinner Breakfast Percent of Meal Consumed 15% 100% Weight 122.5 kg Blood Glucose* 133 100 100 Patient Weight 02/24/17 23:59 Weight 122.5 kg - General Appearance General appearance: Present: well-developed, well-nourished, obese EENT: Present: ATNC Neck: Present: supple Respiratory: Present: clear Cardiology: Present: edema, regular rate Gastrointestinal: Present: normoactive bowel sounds, no tenderness, obese, distended (decreased distension. ) Integumentary: Present: warm and dry Neurologic: Present: alert and oriented x3 Musculoskeletal: Present: no cyanosis Psychiatric: Present: mood/affect appropriate - Lab 02/24/17 06:37 02/24/17 06:37 Most recent lab results Calcium 7.6 mg/dL (8.6-10.3) L 02/24/17 06:37 Phosphorus 4.5 mg/dL (2.7-4.5) 02/23/17 03:38 Magnesium 2.8 mg/dL (1.6-2.6) H 02/23/17 03:38 Urine Creatinine 170 mg/dL 02/23/17 15:39 Urine Sodium 18.4 mEq/L 02/23/17 15:39 Urine Total Protein 101 mg/dL 02/23/17 15:39 - VTE Documentation of Mechanical Device: Intermittent pneumatic compression device Consult Discharge Plan - Plan Referrals: Jose Alberto Benton, BATT PACKER [Primary Care Provider] -
[2017-02-24] MEDS: 0.9 % Sodium Chloride 1,000 ML IVC SCH ×2 (14:03→23:58)
[2017-02-25] MEDS: Piperacillin/Tazobactam 3.375 GM/200 ML BAG IVPB SCH ×2 (00:50→12:32)
[2017-02-25 04:42] LABS: Basophils % 0.2 %; Eosinophils % 0.5 %; Hematocrit 32.8 % (37.5-50.1); Hemoglobin 10.5 g/dL (12.9-16.9); Immature Granulocytes % 0.3 % (0-4); Lymphocytes % 16.8 %; Mean Corpuscular Hemoglobin 28.8 pg (28.0-33.3); Mean Corpuscular Volume 90.1 fL (83.0-100.0); Monocytes # 0.4 K/mcL (0.0-1.3); Monocytes % 6.7 %; Neutrophils # 4.4 K/mcL (1.6-8.9); Platelet Count 146 K/mcL (140-400); Red Blood Count 3.64 M/mcL (4.19-5.50); Red Cell Distribution Width 17.2 % (11.5-14.5); Segmented Neutrophils % 75.5 %
[2017-02-25 05:07] LABS: Albumin 2.7 g/dL (3.5-5.7); Albumin/Globulin Ratio 1.4 (1.1-2.2); Bilirubin,Total 1.2 mg/dL (0.3-1.0); Calcium 7.3 mg/dL (8.6-10.3); Potassium 4.9 mEq/L (3.5-5.1); Total Protein 4.7 g/dL (6.4-8.9)
[2017-02-25] MEDS: Insulin LISPRO 300 UNITS/3 ML VIAL SQ SCH ×4 (07:58→21:19)
[2017-02-25] MEDS: FLUOROURACIL TP SCH ×2 (07:59→21:02)
[2017-02-25] MEDS: Loratadine 10 MG TABLET PO SCH (08:17)
[2017-02-25] MEDS: Famotidine 20 MG TABLET PO SCH (08:17)
[2017-02-25] MEDS: FLUoxetine 20 MG CAPSULE PO SCH (08:17)
[2017-02-25] MEDS: Ammonium Lactate 30 APPL/225 GM BOTTLE TP SCH (08:18)
[2017-02-25] MEDS: Fluticasone Propionate Nasal 50 MCG/SPRAY BOTTLE NS SCH (08:18)
[2017-02-25] MEDS: 0.9 % Sodium Chloride 1,000 ML IVC SCH (10:14)
[2017-02-25] MEDS: Budesonide/Formoterol 160/4.5 MDI IH SCH ×2 (10:39→20:18)
[2017-02-25] MEDS ORDERED: Sodium Bicarbonate 150 MEQ in D5% in Water 1,000 ML IVC SCH (14:15)
[2017-02-25] MEDS ORDERED: Albumin 25% 25gram/100mL 25 GM/100 ML IV.SOLN IVPB ONE (14:17)
--- NOTE | 2017-02-25 14:19 | Nephrology Progress Note ---
Date of Encounter: 02/25/17 Time of Encounter: 14:17 - Assessment and Plan (1) ADRIEN (acute kidney injury) Current Visit: Yes Status: Acute Renal function stable after paracentesis. Continue to follow to see if renal function starts to improve. Avoid nephrotoxins. Adjust medications for renal function. Not likely hepatorenal at this point. Continue to follow. (2) Anemia Current Visit: Yes Status: Acute Per primary team. Qualifiers: Anemia type: unspecified type Qualified Code(s): D64.9 - Anemia, unspecified (3) Hyperkalemia Current Visit: Yes Status: Acute Resolved. Follow potassium level. (4) Multifocal pneumonia Current Visit: Yes Status: Acute Per primary team. (5) Atrial fibrillation Current Visit: Yes Status: Chronic Heart rate is controlled. Qualifiers: Atrial fibrillation type: chronic Qualified Code(s): I48.2 - Chronic atrial fibrillation (6) Cirrhosis of liver Current Visit: Yes Status: Chronic With ascites. S/p paracentesis. Not encephalopathic. Qualifiers: Hepatic cirrhosis type: unspecified hepatic cirrhosis Ascites presence: with ascites Qualified Code(s): K74.60 - Unspecified cirrhosis of liver (7) Obesity (BMI 30-39.9) Current Visit: Yes Status: Chronic outpatient management. Subjective Principal diagnosis: ADRIEN Interval history: Patient seen. He was eating lunch. No new complaint. He feels better after paracentesis. Objective - Vital Signs Vital signs: Vital Signs Temp Pulse Resp BP Pulse Ox 02/25/17 12:26 72 18 95 02/25/17 11:26 98.3 F 72 18 81/52 96 02/25/17 10:39 18 97 02/25/17 10:01 74 18 98 02/25/17 08:08 72 02/25/17 08:05 70 16 95 02/25/17 07:32 97.9 F 69 16 100/68 96 02/25/17 05:20 71 88/61 02/25/17 03:50 74 02/25/17 03:44 97.6 F 71 18 94/62 97 02/25/17 00:00 69 02/24/17 23:48 97.6 F 69 16 94/61 96 02/24/17 22:33 16 95 02/24/17 21:18 74 02/24/17 19:50 97.8 F 69 17 89/59 97 02/24/17 18:28 73 18 88/57 95 02/24/17 16:05 97.5 F L 68 16 88/57 96 Intake and Output 02/24/17 02/25/17 02/25/17 23:59 07:59 15:59 Intake Total 1120 / 1120 400 / 400 1240 / 1240 Output Total 720 / 720 125 / 125 500 / 500 Balance 400 / 400 275 / 275 740 / 740 Intake: IV Fluids 1000 / 1000 400 / 400 1000 / 1000 0.9 % Sodium Chloride 1,000 ML 1000 / 1000 1000 / 1000 @ 100 mls/hr IVC .Q10H [facility] Rx#: [id number] Zosyn Premix 3.375 GM/200 ML 3. 400 / 400 375 gm In 200 ml @ 50 mls/hr IVPB Q12H [facility] Rx#:[id number] Oral 120 / 120 240 / 240 Output: Stool 100 / 100 Catheter 620 / 620 125 / 125 500 / 500 Urethral ([place]) 180 / 180 Other: Meal Dinner Lunch Percent of Meal Consumed 50% 50% Stool Size Moderate Moderate Stool Consistency loose loose liquid liquid Stool Color Green Green Weight 116.7 kg Blood Glucose* 112 92 90 Patient Weight 02/25/17 23:59 Weight 116.7 kg - General Appearance General appearance: Present: well-developed, well-nourished, obese EENT: Present: ATNC Neck: Present: supple Cardiology: Present: regular rate Integumentary: Present: warm and dry Neurologic: Present: alert and oriented x3 Psychiatric: Present: mood/affect appropriate - Lab 02/25/17 04:27 02/25/17 04:27 Most recent lab results Calcium 7.3 mg/dL (8.6-10.3) L 02/25/17 04:27 Phosphorus 4.5 mg/dL (2.7-4.5) 02/23/17 03:38 Magnesium 2.8 mg/dL (1.6-2.6) H 02/23/17 03:38 Urine Creatinine 170 mg/dL 02/23/17 15:39 Urine Sodium 18.4 mEq/L 02/23/17 15:39 Urine Total Protein 101 mg/dL 02/23/17 15:39 - VTE Documentation of Mechanical Device: Intermittent pneumatic compression device Consult Discharge Plan - Plan Referrals: Jose Alberto Benton, [employer] [Primary Care Provider] - ()
--- NOTE | 2017-02-25 14:44 | Internal Med Progress Note ---
<GildardoPaulino whitley - Last Filed: 02/25/17 15:05> Date of Encounter: 02/25/17 Time of Encounter: 14:41 - Assessment and plan (1) Multifocal pneumonia Current Visit: Yes Status: Acute Assessment and plan: - CT scan from [place] demonstrate multifocal PNA - Normal WBC of 5.8 this morning - VSS. Currently tolerating room air with oxygen saturation in mid 90s - Bilateral decreased breath sounds. no reports of cough, fevers, chills per patient Plan: - Continue Zosyn day #3. We will likely transition to Augmentin on discharge. - Duonebs PAVAN, Albuterol Nebs PRN - Clinically improving (2) Cirrhosis of liver Current Visit: Yes Status: Chronic Assessment and plan: - PT/INR/PTT at [place] are 11.8/1.13/26.8 - CT scan at [place] showing cirrhosis with multiple small hypodense hepatic lesions, infiltrative mass, malignancy cannot be excluded on right lobe. - Pt reports of following a boot repairer at [facility] - Spoke with Dr. Vasques this afternoon, states he can follow up as outpatient for biopsy. - Paracentesis 02/24/16, - 15L off. Received 100 mg Albumin following procedure. Has been borderline hypotensive since. Most recently. 88/51. - Ammonia trending down 60 ->55 Plan - Follow up as outpatient with Dr. Vasques - Carefully monitor BP following paracentesis. - Will give additional 100 mg albumin this afternoon Qualifiers: Hepatic cirrhosis type: unspecified hepatic cirrhosis Ascites presence: with ascites Qualified Code(s): K74.60 - Unspecified cirrhosis of liver (3) Ascites Current Visit: Yes Status: Acute Assessment and plan: - As above for cirrhosis - Paracentesis was performed by IR yesterday - 15,000cc peritoneal fluid was removed - 100g Albumin was given, will give additional 100g Qualifiers: Ascites type: other type Qualified Code(s): R18.8 - Other ascites (4) Acute kidney injury superimposed on chronic kidney disease Current Visit: Yes Status: Acute Assessment and plan: Renal function as of January 201711/03.27 per Social Science Analyst. - Cr trending 2.75 -> 3.01 -> 3.2 -> 3.28 -> 3.17 today - May be secondary to intravascular depletion from paracentesis and ascites. Plan - Nephrology was consulted. Appreciate recommendations - Continue to hold nephrotoxic agents - Retroperitoneal kidney US unremarkable without hydronephrosis - FENa 0.26 and urine specific gravity elevated - Adding IVF - Further management per nephro (5) Atrial fibrillation Current Visit: Yes Status: Chronic Assessment and plan: - Eliquis for anticoagulation - Continue Sotalol - Telemetry - HR NSR in 70s Qualifiers: Atrial fibrillation type: chronic Qualified Code(s): I48.2 - Chronic atrial fibrillation (6) Pressure ulcer, stage 1 Current Visit: Yes Status: Acute Assessment and plan: Conservative management Keep moisturized Pressure reduction Q2 hour turns Qualifiers: Pressure ulcer location: thigh Laterality: left Qualified Code(s): L89.221 - Pressure ulcer of left hip, stage 1 (7) Obesity (BMI 30-39.9) Current Visit: Yes Status: Chronic Assessment and plan: Encouraged outpatient weight loss Ascites contributing to weight gain. (8) DVT prophylaxis Current Visit: Yes Status: Acute Assessment and plan: eliquis - Time Spent With Patient 25 - 35 minutes - Subjective Interval history: Patient was seen and examined at that since morning. He states that he is feeling "pretty well". Denies any symptoms of shortness of breath, fevers, chills, cough. Denies any symptoms of abdominal pain. He states that he feels well enough to go home, however he is frustrated at his boot repairer taking so long to get a biopsy. Social Science Analyst, was attempted to contact at . He states that there is no urgent need for liver biopsy as it is not obvious malignancy. He also expressed concerns of volume of paracentesis (15L) and recommended additional albumin of 100. States his kidney function in January 21, 2017 was 29/1.27. - Constitutional Vitals: Temp Pulse Resp BP Pulse Ox 98.3 F 72 18 81/52 95 02/25/17 11:26 02/25/17 12:26 02/25/17 12:26 02/25/17 11:26 02/25/17 12:26 General appearance: Present: cooperative, A&O X 3, no acute distress, obese Exam: Gen.: Vitals noted. No acute distress. AAOx3. Slow response to questions, however appropriate HEENT: PERRL/EOMI, oropharynx clear, Normocephalic, atraumatic Cardiac: RRR, no murmur, +S1/S2 Pulmonary: Decreased breath sounds bilaterally. CTA bilaterally, no wheezes, rales or rhonchi, equal chest expansion Abdomen: soft, mildly tender diffusely to palpation, BS noted, no guarding, no rebound Extremities: no BLE edema, nontender calf, no cyanosis or clubbing Neuro: A&Ox3, moves all extremities, no focal deficits Psych: Appropriate mood and behavior Internal Medicine: Result - Labs CBC & Chem 7: 02/25/17 04:27 02/25/17 04:27 Labs: Short CBC 02/25/17 Range/Units 04:27 WBC 5.8 (4.3-11.1) K/mcL Hgb 10.5 L (12.9-16.9) g/dL Hct 32.8 L (37.5-50.1) % Plt Count 146 (140-400) K/mcL Neutrophils # 4.4 (1.6-8.9) K/mcL BMP 02/25/17 04:27 Sodium 139 Potassium 4.9 Chloride 112 H Carbon Dioxide 18 L BUN 72 H Creatinine 3.17 H Glucose 96 Calcium 7.3 L Liver Function 02/25/17 Range/Units 04:27 Total Bilirubin 1.2 H (0.3-1.0) mg/dL AST 145 H (13-39) Units/L ALT 52 (7-52) Units/L Alkaline Phosphatase 562 H (34-104) Units/L Albumin 2.7 L (3.5-5.7) g/dL - VTE Documentation of Mechanical Device: Intermittent pneumatic compression device Consult Discharge Plan - Plan Referrals: Jose Alberto Benton, HONING JOB SETTER [Primary Care Provider] - () <Jessika Vasquez - Last Filed: 02/25/17 16:58> Date of Encounter: 02/25/17 - Constitutional Vitals: Temp Pulse Resp BP Pulse Ox 97.1 F L 72 18 90/58 96 02/25/17 16:18 02/25/17 16:18 02/25/17 16:18 02/25/17 16:18 02/25/17 16:18 Internal Medicine: Result - Labs CBC & Chem 7: 02/25/17 04:27 02/25/17 04:27 Labs: Short CBC 02/25/17 Range/Units 04:27 WBC 5.8 (4.3-11.1) K/mcL Hgb 10.5 L (12.9-16.9) g/dL Hct 32.8 L (37.5-50.1) % Plt Count 146 (140-400) K/mcL Neutrophils # 4.4 (1.6-8.9) K/mcL BMP 02/25/17 04:27 Sodium 139 Potassium 4.9 Chloride 112 H Carbon Dioxide 18 L BUN 72 H Creatinine 3.17 H Glucose 96 Calcium 7.3 L Liver Function 02/25/17 Range/Units 04:27 Total Bilirubin 1.2 H (0.3-1.0) mg/dL AST 145 H (13-39) Units/L ALT 52 (7-52) Units/L Alkaline Phosphatase 562 H (34-104) Units/L Albumin 2.7 L (3.5-5.7) g/dL - Attending Attestation I examined this patient and my medical decision-making was reviewed with the Resident Physician Dr. Fairchild. I agree with the documented findings, disposition and treatment plan as described except to the extent set forth below. Mr. Romero is a 66 year old male with PMH Of cirrhosis of the liver, liver tumor , HTN, HLD, Afib on Eliquis, DM, CKD, and CVA with left sided weakness who was transferred to [facility] from [facility] for management of multifocal PNA, worsening ascites. Pt reports of having his last paracentesis on January 24, and reports of following with a boot repairer at [facility] for his liver tumor He did have paracentesis 2 days ago..Now he is feeling little better. Denied any CP / SOB Gen: Mild distress due to distended abdomen, A, A, O x 3 Heart; S1S2+ RRR No murmurs Abd: Soft, NT, Distended Chest: Diminished BS b/l basal regions, No crackles a/p 1. Acute Multi focal Pneumonia Mostly bacterial..high risk for aspiration too cont empirical abx Zosyn Cont Bronchodilators 2. Severe ascities 3. Hepatic tumor / Cirrhosis liver s/p Paracentesis - removed 15 lit fluids Received 100gm Albumin BP still low low will give another 100gm of Albumin Will call his GI Dr. Luigi Vasques in AM regarding further care of plan 4. Paroxysmal A fib rate controlled with Sotalol d/c Metoprolol resume ELiquis 5. ADRIEN with CKD-3 No previous labs to compare Cr trending high Nephro on board held diuretics cont IV hydration
[2017-02-25] MEDS: Sodium Bicarbonate 150 MEQ in D5% in Water 1,000 ML IVC SCH (19:19)
[2017-02-26] MEDS: Piperacillin/Tazobactam 3.375 GM/200 ML BAG IVPB SCH ×2 (00:27→13:32)
[2017-02-26 04:14] LABS: Basophils % 0.1 %; Eosinophils % 0.1 %; Hematocrit 32.4 % (37.5-50.1); Hemoglobin 10.4 g/dL (12.9-16.9); Immature Granulocytes % 0.3 % (0-4); Lymphocytes # 0.7 K/mcL (0.6-4.6); Lymphocytes % 10.9 %; Mean Corpuscular HGB Conc 32.1 g/dL (31.6-35.5); Mean Corpuscular Hemoglobin 28.9 pg (28.0-33.3); Mean Platelet Volume 11.3 fL (9.4-12.4); Monocytes # 0.6 K/mcL (0.0-1.3); Monocytes % 8.3 %; Neutrophils # 5.4 K/mcL (1.6-8.9); Platelet Count 118 K/mcL (140-400); Segmented Neutrophils % 80.3 %
[2017-02-26] MEDS: Sodium Bicarbonate 150 MEQ in D5% in Water 1,000 ML IVC SCH (04:18)
[2017-02-26 04:39] LABS: Albumin 2.4 g/dL (3.5-5.7); Albumin/Globulin Ratio 1.3 (1.1-2.2); Bilirubin,Total 1.1 mg/dL (0.3-1.0); Calcium 7.2 mg/dL (8.6-10.3); Globulin 1.9 g/dL (2.4-3.5); Potassium 4.7 mEq/L (3.5-5.1); Total Protein 4.3 g/dL (6.4-8.9)
--- NOTE | 2017-02-26 07:31 | Nephrology Progress Note ---
Date of Encounter: 02/26/17 Time of Encounter: 07:31 - Assessment and Plan (1) ADRIEN (acute kidney injury) Current Visit: Yes Status: Acute Patient's baseline BUN/Cr is 29/1.27 Renal function improved after paracentesis Start oral bicarbonate Continue to follow to see if renal function starts to improve. Avoid nephrotoxins. Adjust medications for renal function. Not likely hepatorenal at this point. Continue to follow. (2) Anemia Current Visit: Yes Status: Acute Management per primary team Qualifiers: Anemia type: unspecified type Qualified Code(s): D64.9 - Anemia, unspecified (3) Hyperkalemia Current Visit: Yes Status: Acute Resolved. Continue to monitor potassium level. (4) Multifocal pneumonia Current Visit: Yes Status: Acute Management per primary team (5) Atrial fibrillation Current Visit: Yes Status: Chronic Heart rate is controlled. Management per primary team Qualifiers: Atrial fibrillation type: chronic Qualified Code(s): I48.2 - Chronic atrial fibrillation (6) Cirrhosis of liver Current Visit: Yes Status: Chronic With ascites. S/p paracentesis. Not encephalopathic. Qualifiers: Hepatic cirrhosis type: unspecified hepatic cirrhosis Ascites presence: with ascites Qualified Code(s): K74.60 - Unspecified cirrhosis of liver (7) Obesity (BMI 30-39.9) Current Visit: Yes Status: Chronic BMI 35.3 Diet modification and exercise Subjective Principal diagnosis: ADRIEN Interval history: Patient seen and examined sitting up in bed eating breakfast. He reports feeling slightly improved. Patient's baseline BUN/Cr is 29/1.27 and his renal function has slightly improved today. Patient agrees with starting oral bicarbonate and monitoring his renal function. Objective - Vital Signs Vital signs: Vital Signs Temp Pulse Resp BP Pulse Ox 02/26/17 04:30 98.4 F 80 20 92/56 96 02/26/17 00:17 97.9 F 89 18 88/62 95 02/25/17 21:10 97.7 F 71 16 86/59 95 02/25/17 20:18 19 100 02/25/17 18:45 98.1 F 74 18 100/67 97 02/25/17 17:32 73 20 96 02/25/17 16:18 97.1 F L 72 18 90/58 96 02/25/17 16:16 72 18 90/58 96 02/25/17 12:26 72 18 95 02/25/17 11:26 98.3 F 72 18 81/52 96 02/25/17 10:39 18 97 02/25/17 10:01 74 18 98 02/25/17 08:08 72 02/25/17 08:05 70 16 95 02/25/17 07:32 97.9 F 69 16 100/68 96 Intake and Output 02/25/17 02/25/17 02/26/17 15:59 23:59 07:59 Intake Total 1240 / 1240 900 / 900 1640 / 1640 Output Total 500 / 500 230 / 230 0 / 0 Balance 740 / 740 670 / 670 1640 / 1640 Intake: IV Fluids 1000 / 1000 300 / 300 1000 / 1000 0.9 % Sodium Chloride 1,000 ML 1000 / 1000 @ 100 mls/hr IVC .Q10H PAVAN Rx#: [id number] Sodium Bicarbonate 150 MEQ In 1000 / 1000 Dextrose 5% 1,000 ML @ 100 mls/ hr IVC .[id number] PAVAN Rx#: [id number] Flexbumin 25 gm In 100 ml @ 60 100 / 100 mls/hr IVPB ONCE ONE Rx#: [id number] Zosyn Premix 3.375 GM/200 ML 3. 200 / 200 375 gm In 200 ml @ 50 mls/hr IVPB Q12H [facility] Rx#:[id number] Oral 240 / 240 600 / 600 640 / 640 Output: Urine 230 / 230 0 / 0 Catheter 500 / 500 Urethral ([place]) 180 / 180 Other: Meal Lunch Percent of Meal Consumed 50% Stool Size Large Stool Consistency loose Stool Characteristics Normal for Patient Stool Color Brown Green # Voids 1 Weight 118 kg Blood Glucose* 90 156 Patient Weight 02/26/17 23:59 Weight 118 kg - General Appearance General appearance: Present: well-developed, well-nourished, obese EENT: Present: ATNC, PERRL, mucous membranes moist Neck: Present: no JVD, supple Respiratory: Present: clear Additional Comments: equal breath sounds bilaterally Cardiology: Present: no murmurs, regular rate, regular rhythm Gastrointestinal: Present: normoactive bowel sounds, tenderness (mild RUQ TTP), no guarding, no organomegaly Integumentary: Present: no rash, warm and dry Neurologic: Present: no focal deficit, alert and oriented x3 Musculoskeletal: Present: no deformities, no erythema Psychiatric: Present: mood/affect appropriate - Lab 02/26/17 03:53 02/26/17 03:53 Most recent lab results Calcium 7.2 mg/dL (8.6-10.3) L 02/26/17 03:53 Phosphorus 4.5 mg/dL (2.7-4.5) 02/23/17 03:38 Magnesium 2.2 mg/dL (1.6-2.6) 02/26/17 03:53 Urine Creatinine 170 mg/dL 02/23/17 15:39 Urine Sodium 18.4 mEq/L 02/23/17 15:39 Urine Total Protein 101 mg/dL 02/23/17 15:39 - VTE Documentation of Mechanical Device: Intermittent pneumatic compression device Consult Discharge Plan - Plan Referrals: Jose Alberto Benton, SPRING COILING MACHINE SETTER [Primary Care Provider] - ()
[2017-02-26] MEDS: Budesonide/Formoterol 160/4.5 MDI IH SCH ×2 (08:05→22:36)
[2017-02-26] MEDS: FLUoxetine 20 MG CAPSULE PO SCH (08:53)
[2017-02-26] MEDS: Famotidine 20 MG TABLET PO SCH (08:53)
[2017-02-26] MEDS: Loratadine 10 MG TABLET PO SCH (08:54)
[2017-02-26] MEDS: Insulin LISPRO 300 UNITS/3 ML VIAL SQ SCH ×3 (08:54→16:34)
[2017-02-26] MEDS: Fluticasone Propionate Nasal 50 MCG/SPRAY BOTTLE NS SCH (08:54)
[2017-02-26] MEDS: Ammonium Lactate 30 APPL/225 GM BOTTLE TP SCH (08:54)
[2017-02-26] MEDS: FLUOROURACIL TP SCH ×2 (08:54→19:43)
[2017-02-26] MEDS: Megestrol Acetate 400 MG/10 ML UDC PO SCH (16:41)
[2017-02-26] MEDS: Furosemide 20 MG TABLET PO SCH (16:47)
[2017-02-26] MEDS ORDERED: Furosemide 20 MG TABLET PO SCH (17:00)
--- NOTE | 2017-02-26 20:51 | Internal Med Progress Note ---
Date of Encounter: 02/26/17 Time of Encounter: 14:00 - Assessment and plan (1) Multifocal pneumonia Current Visit: Yes Status: Acute Assessment and plan: We will continue with Zosyn. Plan to switch to Augmentin on discharge. (2) Cirrhosis of liver Current Visit: Yes Status: Chronic Assessment and plan: Resume oral Lasix. Continue to monitor clinically. He reports decreased appetite. We will start oral Megace. He has been following outpatient right hepatic lobe mass can complete workup. We will consult palliative care to explore further options. Interval history:- PT/INR/PTT at [place] are 11.8/1./.8 - CT scan at [place] showing cirrhosis with multiple small hypodense hepatic lesions, infiltrative mass, malignancy cannot be excluded on right lobe. - Pt reports of following a driver license agent at [facility] - Spoke with Dr. Vasques this afternoon, states he can follow up as outpatient for biopsy. - Paracentesis 02/24/16, - 15L off. Received 100 mg Albumin following procedure. Has been borderline hypotensive since. Most recently. /51. - Ammonia trending down 60 ->55 Plan - Follow up as outpatient with Dr. Vasques - Carefully monitor BP following paracentesis. - Will give additional 100 mg albumin this afternoon Qualifiers: Hepatic cirrhosis type: unspecified hepatic cirrhosis Ascites presence: with ascites Qualified Code(s): K74.60 - Unspecified cirrhosis of liver (3) Ascites Current Visit: Yes Status: Acute Assessment and plan: - Paracentesis was performed by IR on 02/24/2017 - 15,000cc peritoneal fluid was removed - 100g Albumin was given, will give additional 100g Qualifiers: Ascites type: other type Qualified Code(s): R18.8 - Other ascites (4) Acute kidney injury superimposed on chronic kidney disease Current Visit: Yes Status: Acute Assessment and plan: Kidney function improved today. Appreciate nephrology recommendations. Agree with stopping fluids. We will resume Lasix and monitor kidney function closely. Hepatorenal syndrome also enters differential diagnosis. Interval history: Renal function as of January 201711/03.27 per High School Computer Science Teacher. - Cr trending 2.75 -> 3.01 -> 3.2 -> 3.28 -> 3.17 today - May be secondary to intravascular depletion from paracentesis and ascites. Plan - Nephrology was consulted. Appreciate recommendations - Continue to hold nephrotoxic agents - Retroperitoneal kidney US unremarkable without hydronephrosis - FENa 0.26 and urine specific gravity elevated - Adding IVF - Further management per nephro (5) Atrial fibrillation Current Visit: Yes Status: Chronic Assessment and plan: - Eliquis for anticoagulation - Continue Sotalol - Telemetry - HR NSR in 70s Qualifiers: Atrial fibrillation type: chronic Qualified Code(s): I48.2 - Chronic atrial fibrillation (6) DVT prophylaxis Current Visit: Yes Status: Acute Assessment and plan: eliquis (7) Obesity (BMI 30-39.9) Current Visit: Yes Status: Chronic Assessment and plan: Encouraged outpatient weight loss Ascites contributing to weight gain. - Subjective Interval history: Patient reports decreased appetite and generalized weakness, worse over the last 2 weeks, has not significantly improved during this hospitalization. Denies chest pain fever and shortness of breath. He has had paracentesis with 15 L removed during this admission. It is the first time I am seeing this patient. All his medical problems are new to me today. - Constitutional Vitals: Temp Pulse Resp BP Pulse Ox 98.4 F 76 18 89/58 96 02/26/17 18:30 02/26/17 18:30 02/26/17 18:30 02/26/17 18:30 02/26/17 18:30 General appearance: Present: cooperative, A&O X 3, no acute distress, obese - Respiratory Respiratory exam: Present: CTAB. Absent: accessory muscle use, rales, rhonchi, wheezes - Cardiovascular Cardiovascular exam: Present: RRR, +S1, +S2. Absent: diastolic murmur, gallop, rubs, systolic murmur - GI/Abdominal GI/Abdominal exam: Present: distended (With dullness to percussion of flanks, pitting edema), normal bowel sounds, soft, no peritoneal signs. Absent: tenderness - Extremities Exam Extremities exam: Present: pedal edema, warm, radial pulses palpable and symmetrical. Absent: calf tenderness, cyanotic - Neurological Exam Neurological exam: Present: CN II-XII intact, oriented X3, no focal deficits. Absent: pronater drift, facial droop, speech deficit - Skin Skin exam: Present: dry, intact Internal Medicine: Result - Labs CBC & Chem 7: 02/26/17 03:53 02/26/17 03:53 Labs: Short CBC 02/26/17 Range/Units 03:53 WBC 6.7 (4.3-11.1) K/mcL Hgb 10.4 L (12.9-16.9) g/dL Hct 32.4 L (37.5-50.1) % Plt Count 118 L (140-400) K/mcL Neutrophils # 5.4 (1.6-8.9) K/mcL BMP 02/26/17 03:53 Sodium 143 Potassium 4.7 Chloride 108 H Carbon Dioxide 19 L BUN 64 H Creatinine 2.92 H Glucose 118 H Calcium 7.2 L Liver Function 02/26/17 Range/Units 03:53 Total Bilirubin 1.1 H (0.3-1.0) mg/dL AST 158 H (13-39) Units/L ALT 54 H (7-52) Units/L Alkaline Phosphatase 590 H (34-104) Units/L Albumin 2.4 L (3.5-5.7) g/dL - Impressions Impressions Retroperitoneum Ultrasound 02/23/17 14:12 IMPRESSION: No hydronephrosis. Incidentally noted is a cirrhotic appearance of the liver with ascites in the upper quadrant bilaterally. D/ / 02/23/2017 17:35:56 Mike Manzano MD / [facility] [place] Interpreting Provider: Mike Manzano MD - VTE Documentation of Mechanical Device: Intermittent pneumatic compression device Consult Discharge Plan - Plan Referrals: Jose Alberto Benton CABLE MACHINE OPERATOR [Primary Care Provider] - ()
[2017-02-27] MEDS: Piperacillin/Tazobactam 3.375 GM/200 ML BAG IVPB SCH ×2 (00:22→13:57)
[2017-02-27] MEDS: Insulin LISPRO 300 UNITS/3 ML VIAL SQ SCH ×5 (00:23→21:37)
--- NOTE | 2017-02-27 07:13 | Nephrology Progress Note ---
Date of Encounter: 02/27/17 Time of Encounter: 07:13 - Assessment and Plan (1) ADRIEN (acute kidney injury) Current Visit: Yes Status: Acute Patient's baseline BUN/Cr is 29/1.27 Renal function slightly improved after paracentesis Will give albumin and bicarbonate today Continue to follow to see if renal function starts to improve. Avoid nephrotoxins. Adjust medications for renal function. Possible hepatorenal syndrome Continue to follow. (2) Anemia Current Visit: Yes Status: Acute Management per primary team Qualifiers: Anemia type: unspecified type Qualified Code(s): D64.9 - Anemia, unspecified (3) Hyperkalemia Current Visit: Yes Status: Acute Resolved. Continue to monitor potassium level. (4) Multifocal pneumonia Current Visit: Yes Status: Acute Management per primary team (5) Atrial fibrillation Current Visit: Yes Status: Chronic Heart rate is controlled. Management per primary team Qualifiers: Atrial fibrillation type: chronic Qualified Code(s): I48.2 - Chronic atrial fibrillation (6) Cirrhosis of liver Current Visit: Yes Status: Chronic With ascites. S/p paracentesis. Not encephalopathic. Palliative care consulted to determine prognosis and liver transplant status Will consider temporary dialysis if patient is a candidate for liver transplant. If not a candidate, then would recommend palliative care without dialysis Qualifiers: Hepatic cirrhosis type: unspecified hepatic cirrhosis Ascites presence: with ascites Qualified Code(s): K74.60 - Unspecified cirrhosis of liver (7) Obesity (BMI 30-39.9) Current Visit: Yes Status: Chronic BMI 35.3 Diet modification and exercise Subjective Principal diagnosis: ADRIEN Interval history: Patient seen and examined sitting up in bedside chair. He reports feeling slightly improved. Patient's baseline BUN/Cr is 29/1.27 and his renal function has unchanged. Patient was evaluated by palliative care this morning to determine status of liver transplant and overall prognosis. Objective - Vital Signs Vital signs: Vital Signs Temp Pulse Resp BP Pulse Ox 02/27/17 06:54 97.6 F 76 19 97/66 95 02/27/17 03:15 97.8 F 80 20 96/63 93 02/27/17 03:10 79 02/27/17 00:19 79 18 84/62 95 02/27/17 00:15 76 02/26/17 22:36 16 95 02/26/17 19:45 69 02/26/17 18:30 98.4 F 76 18 89/58 96 02/26/17 16:48 74 02/26/17 15:57 97.8 F 77 18 88/64 94 02/26/17 11:58 75 02/26/17 11:52 72 16 84/55 96 02/26/17 09:01 82 02/26/17 08:05 16 92 02/26/17 07:50 97.8 F 81 18 96/62 95 Intake and Output 02/26/17 02/26/17 02/27/17 15:59 23:59 07:59 Intake Total 1130 / 1130 200 / 200 Output Total 150 / 150 100 / 100 Balance 980 / 980 100 / 100 Intake: IV Fluids 200 / 200 200 / 200 Zosyn Premix 3.375 GM/200 ML 3. 200 / 200 200 / 200 375 gm In 200 ml @ 50 mls/hr IVPB Q12H [facility] Rx#:[id number] Oral 930 / 930 0 / 0 Output: Urine 150 / 150 100 / 100 Other: Meal Lunch Dinner Percent of Meal Consumed 20% 0% Stool Size Small Small Small Stool Consistency loose loose liquid Stool Color Brown Brown Brown # Urine Diapers 1 1 1 Weight 119.1 kg Blood Glucose* 117 103 95 Patient Weight 02/27/17 23:59 Weight 119.1 kg - General Appearance General appearance: Present: well-developed, well-nourished, obese EENT: Present: PERRL, mucous membranes moist Neck: Present: no JVD, supple Respiratory: Present: clear Additional Comments: equal breath sounds bilaterally Cardiology: Present: no murmurs, no edema Gastrointestinal: Present: normoactive bowel sounds, tenderness (RUQ), no guarding Integumentary: Present: no rash, warm and dry Neurologic: Present: no focal deficit, alert and oriented x3 Musculoskeletal: Present: no deformities, no erythema Psychiatric: Present: depressed, cooperative - Lab 02/26/17 03:53 02/27/17 08:34 Most recent lab results Calcium 7.2 mg/dL (8.6-10.3) L 02/26/17 03:53 Phosphorus 4.5 mg/dL (2.7-4.5) 02/23/17 03:38 Magnesium 2.2 mg/dL (1.6-2.6) 02/26/17 03:53 Urine Creatinine 170 mg/dL 02/23/17 15:39 Urine Sodium 18.4 mEq/L 02/23/17 15:39 Urine Total Protein 101 mg/dL 02/23/17 15:39 - VTE Documentation of Mechanical Device: Intermittent pneumatic compression device Consult Discharge Plan - Plan Referrals: Jose Alberto Benton, CHEMICAL PLANT OPERATOR SUPERVISOR [Primary Care Provider] - ()
[2017-02-27] MEDS: Famotidine 20 MG TABLET PO SCH (07:31)
[2017-02-27] MEDS: FLUoxetine 20 MG CAPSULE PO SCH (07:32)
[2017-02-27] MEDS: Megestrol Acetate 400 MG/10 ML UDC PO SCH (07:32)
[2017-02-27] MEDS: Fluticasone Propionate Nasal 50 MCG/SPRAY BOTTLE NS SCH (07:32)
[2017-02-27] MEDS: Furosemide 20 MG TABLET PO SCH (07:32)
[2017-02-27] MEDS: Loratadine 10 MG TABLET PO SCH (07:32)
[2017-02-27] MEDS: Ammonium Lactate 30 APPL/225 GM BOTTLE TP SCH (07:35)
[2017-02-27] MEDS: FLUOROURACIL TP SCH (07:35)
[2017-02-27 08:55] LABS: Calcium 7.4 mg/dL (8.6-10.3); Potassium 4.7 mEq/L (3.5-5.1)
--- NOTE | 2017-02-27 09:02 | Palliative - Consult Note ---
<Susan Funez-Mercedes - Last Filed: 02/27/17 08:59> Date of Encounter: 02/27/17 Time of Encounter: 08:30 - Assessment and Plan (1) Goals of care, counseling/discussion Current Visit: Yes Status: Acute Assessment and plan: The patient is comfortable and appears in no acute distress. Patient is afebrile at this time. Patient states that he is unsure of his liver specialist 's plan of care for him at this time. He states that he is under the impression that he is supposed to get a liver biopsy eventually and then place on a liver transplant list, which can take up to approximately 5 years. He does not know when the biopsy is suppose to be scheduled and is frustrated that he "does not know what's going on". Patient admits that he would like to have everything done in regards to his liver. However, in the event that his has cardiac arrest, he states that he does not want to be resuscitated. He confirms with Dr. Baig his current code status of DNR-Comfort care-arrest DNI. He states that he is not considering palliative care or hospice at this time. He denies any nausea, vomiting, or pain at this time. (2) Multifocal pneumonia Current Visit: Yes Status: Acute Assessment and plan: Continue antibiotics per hospitalist's plan. (3) Cirrhosis of liver Current Visit: Yes Status: Chronic Assessment and plan: Patient admits that he feels better after 15 L was removed during his paracentesis on this admission. He reports decreased appetite and nausea when he sees food. Recommended low dose Ativan for his anticipatory nausea. Hospitalist team will continue to monitor the patient closely. Qualifiers: Hepatic cirrhosis type: unspecified hepatic cirrhosis Ascites presence: with ascites Qualified Code(s): K74.60 - Unspecified cirrhosis of liver Palliative-CN HPI - Data of Consult Requesting Physician: Billy Jose MD Primary Care Provider: Jose Alberto Benton CNP - Consult Narrative History of present illness: Mr. Romero is a 66 year old male with a past medical history of liver cirrhosis who was admitted to [facility] for management of his multifocal pneumonia and his worsening ascites. Patient states his last paracentesis was on 2016 where they were able to remove 5 L fluid. During this admission, a paracentesis was performed and 15 L of fluid was removed per documentation. Patient reports that he follows with a elementary classroom teacher in [place], [place]. However, the patient is unclear of the plan. He states that he is under the impression that he needs a liver biopsy and will be place on a liver transplant list eventually. He is unsure of when all that is suppose to happen. Patient clearly states that he wants everything done in terms of his liver. However, the patient confirms his current code status of DNR comfort care arrest DNI, and states that it is still accurate. Patient admits he is comfortable today. He admits nausea when he sees food, mild tenderness to palpation in his abdomen, weakness, and also diarrhea. The patient denies any nausea, vomiting, or pain at this time. The patient also denies any fever, headache, vision changes, chest pain, shortness of breath, difficulty breathing, dysuria, blood and urine, blood in stool, and any numbness and tingling CC: Billy Jose MD Past Med Surg Social Fam HX - Past Medical History Medical history: asthma, atrial fibrillation, cirrhosis, CVA, diabetes, hypertension, liver disease Psychiatric history: no psych history - Social History Smoking Status: Former smoker Alcohol use: none Drug use: none - Family History Mother Adopted: No Living Status: Cause of : HEART ATTACK Medications and Allergies Albuterol Sulfate [Ventolin Hfa] 18 gm IH Q4HR PRN 02/22/17 [History] Amlodipine Besylate 10 mg PO DAILY 02/22/17 [History] Apixaban [Eliquis] 5 mg PO BID 02/22/17 [History] Atorvastatin Calcium [Lipitor] 20 mg PO DAILY 02/22/17 [History] Budesonide/Formoterol 160/4.5 [Symbicort 160/4.5] 2 puff IH BIDR 02/22/17 [ History] Cetirizine HCl [Zyrtec] 10 mg PO DAILY 02/22/17 [History] FLUoxetine HCl [Prozac] 40 mg PO DAILY 02/22/17 [History] Fluorouracil [Efudex] 1 gm TP BID 02/22/17 [History] Fluticasone Propionate Nasal [Flonase] 2 mcg NS DAILY 02/22/17 [History] Furosemide [Lasix] 20 mg PO BID 02/22/17 [History] Metoprolol [Lopressor] 25 mg PO BID 02/22/17 [History] Sotalol [Betapace] 80 mg PO Q12HR 02/22/17 [History] Spironolactone [Aldactone] 50 mg PO DAILY 02/22/17 [History] Tamsulosin [Flomax] 0.4 mg PO DAILY 02/22/17 [History] 3 Allergy/AdvReac Type Severity Reaction Status Date / Time naproxen Allergy Intermediate BLISTERS Verified 02/22/17 20:29 Palliative Care-Exam - Constitutional Vitals: Temp Pulse Resp BP Pulse Ox 97.6 F 76 19 97/66 95 02/27/17 06:54 02/27/17 07:37 02/27/17 06:54 02/27/17 06:54 02/27/17 06:54 General appearance: Present: cooperative, obese. Absent: mild distress, no acute distress - Head Head Exam: Present: atraumatic - Eye Eye exam: Present: EOMI, normal appearance, PERRL - ENT ENT exam: Present: mucous membranes moist - Neck Neck exam: Present: full ROM, normal inspection. Absent: lymphadenopathy, tenderness - Respiratory Respiratory exam: Present: decreased breath sounds. Absent: rales, respiratory distress - Expanded Respiratory Exam Location: decreased breath sounds: Left, Right, Lower - Cardiovascular Cardiovascular exam: Present: RRR, +S1, +S2. Absent: gallop, systolic murmur - GI/Abdominal Exam GI/Abdominal exam: Present: distended, soft, tenderness (diffuse tenderness to palpation in the RUQ and periumbilcal region) - Expanded GI/Abdominal Exam GI/Abdominal exam: Present: ascites (Postive fluid wave). Absent: Luther's sign , tenderness at McBurney's Point - Extremities Exam Extremities exam: Present: pedal edema (bilateral) - Expanded Lower Extremities Exam Lower Leg exam: Present: full ROM, swelling (+1 pitting edema in bilateral lower extremities. ). Absent: ecchymosis, erythema, tenderness Neuro vascular tendon exam: Absent: motor deficit, pulse deficit, sensory deficit - Neurological Exam Neurological exam: Present: alert, CN II-XII intact, oriented X3. Absent: motor sensory deficit, pronater drift, facial droop, speech deficit Internal Medicine - CN: Reslt - Labs CBC & Chem 7: 02/26/17 03:53 02/27/17 08:34 Labs: BMP 02/27/17 08:34 Sodium 135 L Potassium 4.7 Chloride 106 Carbon Dioxide 21 L BUN 63 H Creatinine 2.95 H Glucose 105 Calcium 7.4 L - Impressions Impressions Retroperitoneum Ultrasound 02/23/17 14:12 IMPRESSION: No hydronephrosis. Incidentally noted is a cirrhotic appearance of the liver with ascites in the upper quadrant bilaterally. D/ / 02/23/2017 17:35:56 Mike Manzano MD / [email or web address] Interpreting Provider: Mike Manzano MD Consult Discharge Plan - Plan Referrals: Jose Alberto Benton CNP [Primary Care Provider] - () Palliative Quality Palliative Quality: Screen for Code Status: Yes, Screen for Goals of Care: Yes, Screen for Pain: Yes, If Pain Regimen Started, Initiate Bowel Regimen: NA, Screen for Nausea/Vomitting: Yes Code Status: 02/22/17 20:21 Resuscitation Status: Active [RES] Routine Comment: Resuscitation Status: [id number] <Ion aBig - Last Filed: 02/27/17 12:36> Date of Encounter: 02/27/17 Palliative-CN HPI - Data of Consult Requesting Physician: Billy Jose MD Primary Care Provider: Jose Alberto Benton CNP - Consult Narrative History of present illness: Mr. Romero is a 66 year old male CC: Billy Jose MD Palliative Care-Exam - Constitutional Vitals: Temp Pulse Resp BP Pulse Ox 98.2 F 69 18 90/60 96 02/27/17 11:16 02/27/17 12:11 02/27/17 11:16 02/27/17 11:27 02/27/17 11:16 Internal Medicine - CN: Reslt - Labs CBC & Chem 7: 02/26/17 03:53 02/27/17 08:34 Labs: BMP 02/27/17 08:34 Sodium 135 L Potassium 4.7 Chloride 106 Carbon Dioxide 21 L BUN 63 H Creatinine 2.95 H Glucose 105 Calcium 7.4 L - Attending Attestation I examined this patient and my medical decision-making was reviewed with the Resident Physician. I agree with the documented findings, disposition and treatment plan as described except to the extent set forth below. the patient is cleard about shis dnra dni status and confirmed it with me He does desire to continue any and all treatments for his liver if these are at all possible this includes but is not limited to transplant. Her stance and he will need a biopsy of this mass, I will like to have it done as soon as possible. Me why this was not being done during the hospitalization. I assured him I would discuss it with the treatment team. I did discuss with the treatment team and asked them to further discuss with him. As the patient's goals are fairly clear, and the patient's echo CODE STATUS is clear palliative we will be following from a distance and then possibly sign off in the next couple of days. Palliative Quality Code Status: 02/22/17 20:21 Resuscitation Status: Active [RES] Routine Comment: Resuscitation Status: [id number]
[2017-02-27] MEDS: Budesonide/Formoterol 160/4.5 MDI IH SCH ×2 (11:05→22:02)
[2017-02-27] MEDS ORDERED: Albumin 25% 25gram/100mL 25 GM/100 ML IV.SOLN IVPB ONE (11:10)
[2017-02-27] MEDS ORDERED: Sodium Bicarbonate 150 MEQ in D5% in Water 1,000 ML IVC SCH (11:30)
--- NOTE | 2017-02-27 13:34 | Internal Med Progress Note ---
<Mil Dwyer - Last Filed: 02/27/17 14:20> Date of Encounter: 02/27/17 Time of Encounter: 13:31 - Assessment and plan (1) Multifocal pneumonia Current Visit: Yes Status: Acute Assessment and plan: Patient is clinically stable with his respiratory status and has been not tachycardic and afebrile He is currently on Zosyn day 5, plan to switch to Augmentin once stable for discharge Blood cultures remain negative (2) Acute kidney injury superimposed on chronic kidney disease Current Visit: Yes Status: Acute Assessment and plan: Creatinine remains stable today at 2.95 from 2.93 yesterday Nephrology consulted, appreciate recommendations on if he requires long-term dialysis In setting of borderline hypotension, Lasix has been discontinued and he is on albumin and bicarbonate drip per nephrology (3) Cirrhosis of liver Current Visit: Yes Status: Chronic Assessment and plan: Patient does have possible malignancy as demonstrated on CT scan at [facility] He does follow with Dr. Vasques who is a health care marketing specialist at [facility] and is scheduled to have an outpatient biopsy Palliative care has been consulted, he still wants aggressive care for his liver lesion but confirms his DNR CODE STATUS Nephrology has recommended patient restart albumin and bicarbonate drip for her borderline hypotension PT/INR ordered for tomorrow morning to calculate MELD score Qualifiers: Hepatic cirrhosis type: unspecified hepatic cirrhosis Ascites presence: with ascites Qualified Code(s): K74.60 - Unspecified cirrhosis of liver (4) Anemia Current Visit: Yes Status: Chronic Assessment and plan: Likely secondary to chronic disease in setting of cirrhosis and kidney disease Hemoglobin has been stable at 10.4, no urgent need for transfusion We will continue to trend hemoglobin daily and monitor for signs of blood loss Qualifiers: Anemia type: unspecified type Qualified Code(s): D64.9 - Anemia, unspecified (5) Ascites Current Visit: Yes Status: Acute Assessment and plan: Secondary to cirrhosis Patient did have paracentesis on February 23 with removal of 15 L He has received multiple doses of albumin Qualifiers: Ascites type: other type Qualified Code(s): R18.8 - Other ascites (6) Goals of care, counseling/discussion Current Visit: Yes Status: Acute Assessment and plan: Palliative care consult, appreciate recommendations Patient's family desire him to go to rehabilitation upon discharge, he has been accepted to [facility] Confirmed CODE STATUS with patient and his family of DO NOT RESUSCITATE and DO NOT INTUBATE (7) Atrial fibrillation Current Visit: Yes Status: Chronic Assessment and plan: Patient currently rate controlled in normal sinus rhythm His Lopressor is being held currently due to hypotension but he will continue his sotalol Qualifiers: Atrial fibrillation type: chronic Qualified Code(s): I48.2 - Chronic atrial fibrillation (8) DVT prophylaxis Current Visit: Yes Status: Acute Assessment and plan: EPCDs - Subjective Interval history: Pt seen and examined. Multiple family members were present including daughter and and reconfirmed to me his code status and his fatigue and poor appetite. Patient himself has few complaints this morning and does not have any pain or shortness of breath. He states he still does not have an appetite but denies any vomiting or nausea. He has chronic diarrhea. - Constitutional Vitals: Temp Pulse Resp BP Pulse Ox 98.2 F 69 18 90/60 96 02/27/17 11:16 02/27/17 12:11 02/27/17 11:16 02/27/17 11:27 02/27/17 11:16 General appearance: Present: cooperative, no acute distress, obese, answers questions appropriately (but lethargic) - Head Head exam: Present: atraumatic, normocephalic - Eye Eye exam: Present: PERRL, conjuntiva pink, sclera anicteric - Neck Neck exam general surgery: Present: supple, trachea midline. Absent: lymphadenopathy - Respiratory Respiratory exam: Present: CTAB. Absent: accessory muscle use, rales, rhonchi, wheezes - Cardiovascular Cardiovascular exam: Present: RRR, +S1, +S2. Absent: diastolic murmur, gallop, rubs, systolic murmur - GI/Abdominal GI/Abdominal exam: Present: distended, normal bowel sounds, soft, no peritoneal signs. Absent: tenderness - Extremities Exam Extremities exam: Present: pedal edema, warm, radial pulses palpable and symmetrical. Absent: calf tenderness, cyanotic - Neurological Exam Neurological exam: Present: alert, no focal deficits. Absent: facial droop, speech deficit - Skin Skin exam: Present: dry, intact Internal Medicine: Result - Labs CBC & Chem 7: 02/26/17 03:53 02/27/17 08:34 Labs: BMP 02/27/17 08:34 Sodium 135 L Potassium 4.7 Chloride 106 Carbon Dioxide 21 L BUN 63 H Creatinine 2.95 H Glucose 105 Calcium 7.4 L - VTE Documentation of Mechanical Device: Intermittent pneumatic compression device Consult Discharge Plan - Plan Referrals: Jose Alberto Benton CNP [Primary Care Provider] - () <Billy Jose - Last Filed: 02/27/17 17:50> Date of Encounter: 02/27/17 - Assessment and plan (1) Multifocal pneumonia Current Visit: Yes Status: Acute (2) Cirrhosis of liver Current Visit: Yes Status: Chronic Qualifiers: Hepatic cirrhosis type: unspecified hepatic cirrhosis Ascites presence: with ascites Qualified Code(s): K74.60 - Unspecified cirrhosis of liver (3) Ascites Current Visit: Yes Status: Acute Qualifiers: Ascites type: other type Qualified Code(s): R18.8 - Other ascites (4) Acute kidney injury superimposed on chronic kidney disease Current Visit: Yes Status: Acute (5) Atrial fibrillation Current Visit: Yes Status: Chronic Qualifiers: Atrial fibrillation type: chronic Qualified Code(s): I48.2 - Chronic atrial fibrillation (6) DVT prophylaxis Current Visit: Yes Status: Acute (7) Obesity (BMI 30-39.9) Current Visit: Yes Status: Chronic - Constitutional Vitals: Temp Pulse Resp BP Pulse Ox 98.5 F 74 15 106/66 96 02/27/17 17:09 02/27/17 17:09 02/27/17 17:09 02/27/17 17:09 02/27/17 17:09 Internal Medicine: Result - Labs CBC & Chem 7: 02/26/17 03:53 02/27/17 08:34 Labs: BMP 02/27/17 08:34 Sodium 135 L Potassium 4.7 Chloride 106 Carbon Dioxide 21 L BUN 63 H Creatinine 2.95 H Glucose 105 Calcium 7.4 L - ABG Interpretation ABG results: PT/INR, D-dimer PT 14.2 Seconds (9.4-12.1) H 02/27/17 15:19 - Attending Attestation I conducted a face to face diagnostic evaluation of this patient and my medical decision-making was reviewed with the Resident Physician, Dr Mil Dwyer. I agree with the documented findings, disposition and treatment plan as described except to the extent set forth below: Patient to have repeat paracentesis tomorrow. I will obtain serum tumor markers for GI tumors including AFP, CA-19-9 and CEA. I will obtain a liver ultrasound as part of workup for liver mass. He was advised that ultimately he will require an outpatient liver biopsy as a part of workup for possible liver transplant. Billy Jose MD
[2017-02-27] MEDS: Sodium Bicarbonate 150 MEQ in D5% in Water 1,000 ML IVC ONE (14:12)
[2017-02-27 15:32] LABS: INR 1.3; Prothrombin Time 14.2 Seconds (9.4-12.1)
[2017-02-27 15:35] LABS: Activated Partial Thrombo Time 35.8 Seconds (26.0-36.0)
[2017-02-28] MEDS: Piperacillin/Tazobactam 3.375 GM/200 ML BAG IVPB SCH ×2 (00:51→13:06)
[2017-02-28] MEDS: Sodium Bicarbonate 150 MEQ in D5% in Water 1,000 ML IVC ONE (04:09)
[2017-02-28 05:22] LABS: INR 1.3; Prothrombin Time 13.9 Seconds (9.4-12.1)
[2017-02-28 05:25] LABS: Eosinophils % 0.1 %; Hematocrit 31.1 % (37.5-50.1); Hemoglobin 10.2 g/dL (12.9-16.9); Immature Granulocytes % 0.6 % (0-4); Lymphocytes # 0.9 K/mcL (0.6-4.6); Lymphocytes % 12.2 %; Mean Corpuscular HGB Conc 32.8 g/dL (31.6-35.5); Mean Corpuscular Hemoglobin 28.7 pg (28.0-33.3); Mean Corpuscular Volume 87.6 fL (83.0-100.0); Mean Platelet Volume 11.6 fL (9.4-12.4); Monocytes # 0.6 K/mcL (0.0-1.3); Monocytes % 8.4 %; Neutrophils # 5.6 K/mcL (1.6-8.9); Platelet Count 132 K/mcL (140-400); Red Blood Count 3.55 M/mcL (4.19-5.50); Red Cell Distribution Width 16.6 % (11.5-14.5); Segmented Neutrophils % 78.7 %
[2017-02-28 05:39] LABS: Albumin 2.3 g/dL (3.5-5.7); Albumin/Globulin Ratio 1.2 (1.1-2.2); Bilirubin,Total 1.8 mg/dL (0.3-1.0); Calcium 7.4 mg/dL (8.6-10.3); Potassium 4.3 mEq/L (3.5-5.1); Total Protein 4.3 g/dL (6.4-8.9)
--- NOTE | 2017-02-28 07:41 | Nephrology Progress Note ---
Date of Encounter: 02/28/17 Time of Encounter: 07:40 - Assessment and Plan (1) ADRIEN (acute kidney injury) Current Visit: Yes Status: Acute Patient's baseline BUN/Cr is 29/1.27 Renal function slightly improved after paracentesis Avoid nephrotoxins. Adjust medications for renal function. Possible hepatorenal syndrome Hold Lasix secondary to hypotension/ ADRIEN If no improvement will consider Midodrine for blood pressure support. Will repeat albumin and replace bicarbonate tomorrow if renal function is not improving Continue to follow. (2) Hyperkalemia Current Visit: Yes Status: Acute Resolved. Continue to monitor potassium level. (3) Anemia Current Visit: Yes Status: Chronic Management per primary team Qualifiers: Anemia type: unspecified type Qualified Code(s): D64.9 - Anemia, unspecified (4) Multifocal pneumonia Current Visit: Yes Status: Acute Management per primary team (5) Atrial fibrillation Current Visit: Yes Status: Chronic Heart rate is controlled. Management per primary team Qualifiers: Atrial fibrillation type: chronic Qualified Code(s): I48.2 - Chronic atrial fibrillation (6) Cirrhosis of liver Current Visit: Yes Status: Chronic With ascites. S/p paracentesis. Not encephalopathic. Possible hepatorenal syndrome If no improvement will consider Midodrine for blood pressure support. Palliative care following Will consider temporary dialysis if patient is a candidate for liver transplant. If not a candidate, then would recommend palliative care without dialysis Qualifiers: Hepatic cirrhosis type: unspecified hepatic cirrhosis Ascites presence: with ascites Qualified Code(s): K74.60 - Unspecified cirrhosis of liver (7) Obesity (BMI 30-39.9) Current Visit: Yes Status: Chronic BMI 35.3 Diet modification and exercise (8) Vitamin D deficiency Current Visit: Yes Status: Acute Supplement Vit D Outpatient monitoring Subjective Principal diagnosis: ADRIEN Interval history: Patient seen and examined sitting up in bed. He reports feeling improved today but notes ongoing diarrhea. Patient's renal function has slightly improved. Patient reports he needs a liver biopsy and is unsure if he will have a liver transplant. Case discussed with nurse at bedside. Objective - Vital Signs Vital signs: Vital Signs Temp Pulse Resp BP Pulse Ox 02/28/17 04:59 97.6 F 73 18 96 02/28/17 00:59 97.4 F L 72 18 86/58 94 02/27/17 22:02 16 95 02/27/17 20:31 97.8 F 70 18 87/56 97 02/27/17 17:09 98.5 F 74 15 106/66 96 02/27/17 15:00 72 02/27/17 12:11 69 02/27/17 11:27 90/60 02/27/17 11:16 98.2 F 71 18 69/45 96 02/27/17 11:05 18 95 Intake and Output 02/27/17 02/27/17 02/28/17 15:59 23:59 07:59 Intake Total 420 / 420 920 / 920 1350 / 1350 Output Total 0 / 0 100 / 100 Balance 420 / 420 920 / 920 1250 / 1250 Intake: IV Fluids 300 / 300 200 / 200 1350 / 1350 Sodium Bicarbonate 150 MEQ In 1150 / 1150 Dextrose 5% 1,000 ML @ 75 mls/ hr IVC ONCE ONE Rx#:[id number] Flexbumin 25 gm In 100 ml @ 60 100 / 100 mls/hr IVPB ONCE ONE Rx#: [id number] Zosyn Premix 3.375 GM/200 ML 3. 200 / 200 200 / 200 200 / 200 375 gm In 200 ml @ 50 mls/hr IVPB Q12H PAVAN Rx#:[id number] Oral 120 / 120 720 / 720 Output: Urine 0 / 0 100 / 100 Other: Meal Dinner Percent of Meal Consumed 0% 25% Stool Size Moderate Small Small Stool Consistency liquid liquid liquid Stool Characteristics [place] Stool Color Brown Brown Green # Urine Diapers 1 1 1 # Bowel Movements 1 # Bowel Movement Diapers 1 1 1 Weight 119.1 kg 119.2 kg Blood Glucose* 103 106 Patient Weight 02/28/17 23:59 Weight 119.2 kg - General Appearance General appearance: Present: well-developed, well-nourished, appears started age , obese EENT: Present: ATNC, PERRL, mucous membranes moist Neck: Present: JVD, supple Additional Comments: decreased bibasilar breath sounds Cardiology: Present: no murmurs, no edema, irregular rhythm Gastrointestinal: Present: normoactive bowel sounds, tenderness (RUQ), no guarding, hepatomegaly, distended Integumentary: Present: no rash, warm and dry Neurologic: Present: no focal deficit, alert and oriented x3 Musculoskeletal: Present: no deformities, no erythema Psychiatric: Present: mood/affect appropriate, cooperative - Lab 02/28/17 04:51 02/28/17 04:51 Most recent lab results Calcium 7.4 mg/dL (8.6-10.3) L 02/28/17 04:51 Phosphorus 4.5 mg/dL (2.7-4.5) 02/23/17 03:38 Magnesium 2.2 mg/dL (1.6-2.6) 02/26/17 03:53 Urine Creatinine 170 mg/dL 02/23/17 15:39 Urine Sodium 18.4 mEq/L 02/23/17 15:39 Urine Total Protein 101 mg/dL 02/23/17 15:39 - Imaging Kidney/bladder ultrasound: pending - Allied health notes Allied health notes reviewed: nursing - VTE Documentation of Mechanical Device: Intermittent pneumatic compression device Consult Discharge Plan - Plan Referrals: Jose Alberto Benton, EMPLOYMENT TRAINING SPECIALIST [Primary Care Provider] - ()
[2017-02-28] MEDS: Budesonide/Formoterol 160/4.5 MDI IH SCH (08:00)
--- NOTE | 2017-02-28 08:14 | Internal Med Progress Note ---
Date of Encounter: 02/28/17 Time of Encounter: 08:13 - Assessment and plan (1) Multifocal pneumonia Current Visit: Yes Status: Acute Assessment and plan: Patient is clinically stable with his respiratory status and has been not tachycardic and afebrile He is currently on Zosyn day 6, plan to switch to Augmentin once stable for discharge Blood cultures remain negative (2) Acute kidney injury superimposed on chronic kidney disease Current Visit: Yes Status: Acute Assessment and plan: Creatinine remains stable today at 2.85 from 2.95 yesterday Nephrology consulted, appreciate recommendations on if he requires long-term dialysis In setting of borderline hypotension, Lasix has been discontinued and he is on albumin and bicarbonate drip per nephrology (3) Cirrhosis of liver Current Visit: Yes Status: Chronic Assessment and plan: Patient does have possible malignancy as demonstrated on CT scan at [place] He does follow with Dr. Vasques who is a grade tamper at [facility] and is scheduled to have an outpatient biopsy Palliative care has been consulted, he still wants aggressive care for his liver lesion but confirms his DNR CODE STATUS Liver ultrasound and cancer serological markers pending MELD score 23 = 19% 3 month mortality Qualifiers: Hepatic cirrhosis type: unspecified hepatic cirrhosis Ascites presence: with ascites Qualified Code(s): K74.60 - Unspecified cirrhosis of liver (4) Anemia Current Visit: Yes Status: Chronic Assessment and plan: Likely secondary to chronic disease in setting of cirrhosis and kidney disease Hemoglobin has been stable at 10, no urgent need for transfusion We will continue to trend hemoglobin daily and monitor for signs of blood loss Qualifiers: Anemia type: unspecified type Qualified Code(s): D64.9 - Anemia, unspecified (5) Ascites Current Visit: Yes Status: Acute Assessment and plan: Secondary to cirrhosis Patient did have paracentesis on February 23 with removal of 15 L He has received multiple doses of albumin Qualifiers: Ascites type: other type Qualified Code(s): R18.8 - Other ascites (6) Goals of care, counseling/discussion Current Visit: Yes Status: Acute Assessment and plan: Palliative care consult, appreciate recommendations Patient's family desire him to go to rehabilitation upon discharge, he has been accepted to [facility] Confirmed CODE STATUS with patient and his family of DO NOT RESUSCITATE and DO NOT INTUBATE (7) Atrial fibrillation Current Visit: Yes Status: Chronic Assessment and plan: Patient currently rate controlled in normal sinus rhythm His Lopressor is being held currently due to hypotension but he will continue his sotalol Qualifiers: Atrial fibrillation type: chronic Qualified Code(s): I48.2 - Chronic atrial fibrillation (8) DVT prophylaxis Current Visit: Yes Status: Acute Assessment and plan: EPCDs - Subjective Interval history: Pt seen and examined. Patient has no complaints other than his right arm where he had a plastic bandage on and had an allergic reaction. He still has very little appetite but denies any nausea, vomiting. He still endorses chronic diarrhea up to 10 small movements a day, but no blood. Denies chest pain or shortness of breath. - Constitutional Vitals: Temp Pulse Resp BP Pulse Ox 97.6 F 73 18 86/58 96 02/28/17 04:59 02/28/17 04:59 02/28/17 04:59 02/28/17 00:59 02/28/17 04:59 General appearance: Present: cooperative, no acute distress, obese, answers questions appropriately - Head Head exam: Present: atraumatic, normocephalic - Eye Eye exam: Present: PERRL, conjuntiva pink, sclera anicteric - Neck Neck exam general surgery: Present: supple, trachea midline. Absent: lymphadenopathy - Respiratory Respiratory exam: Present: CTAB. Absent: accessory muscle use, rales, rhonchi, wheezes - Cardiovascular Cardiovascular exam: Present: RRR, +S1, +S2. Absent: diastolic murmur, gallop, rubs, systolic murmur - GI/Abdominal GI/Abdominal exam: Present: normal bowel sounds, soft, no peritoneal signs. Absent: distended, tenderness - Extremities Exam Extremities exam: Present: warm, radial pulses palpable and symmetrical. Absent : calf tenderness, cyanotic, pedal edema - Neurological Exam Neurological exam: Present: alert, oriented X3, no focal deficits. Absent: pronater drift, facial droop, speech deficit - Skin Skin exam: Present: dry, intact Internal Medicine: Result - Labs CBC & Chem 7: 02/28/17 04:51 02/28/17 04:51 Labs: Short CBC 02/28/17 Range/Units 04:51 WBC 7.1 (4.3-11.1) K/mcL Hgb 10.2 L (12.9-16.9) g/dL Hct 31.1 L (37.5-50.1) % Plt Count 132 L (140-400) K/mcL Neutrophils # 5.6 (1.6-8.9) K/mcL BMP 02/27/17 02/28/17 08:34 04:51 Sodium 135 L 136 Potassium 4.7 4.3 Chloride 106 105 Carbon Dioxide 21 L 23 BUN 63 H 64 H Creatinine 2.95 H 2.85 H Glucose 105 108 H Calcium 7.4 L 7.4 L Liver Function 02/28/17 Range/Units 04:51 Total Bilirubin 1.8 H (0.3-1.0) mg/dL AST 125 H (13-39) Units/L ALT 44 (7-52) Units/L Alkaline Phosphatase 553 H (34-104) Units/L Albumin 2.3 L (3.5-5.7) g/dL - ABG Interpretation ABG results: PT/INR, D-dimer PT 13.9 Seconds (9.4-12.1) H 02/28/17 04:51 - VTE Documentation of Mechanical Device: Intermittent pneumatic compression device Consult Discharge Plan - Plan Referrals: Jose Alberto Benton, INLETTER [Primary Care Provider] - ()
[2017-02-28] MEDS: Famotidine 20 MG TABLET PO SCH (09:00)
[2017-02-28] MEDS: Loratadine 10 MG TABLET PO SCH (09:01)
[2017-02-28] MEDS: FLUoxetine 20 MG CAPSULE PO SCH (09:01)
[2017-02-28] MEDS: Fluticasone Propionate Nasal 50 MCG/SPRAY BOTTLE NS SCH (09:01)
[2017-02-28] MEDS: Megestrol Acetate 400 MG/10 ML UDC PO SCH (09:01)
[2017-02-28] MEDS: Insulin LISPRO 300 UNITS/3 ML VIAL SQ SCH ×3 (09:02→16:17)
[2017-02-28] MEDS: Ammonium Lactate 30 APPL/225 GM BOTTLE TP SCH (09:02)
[2017-02-28 12:34] LABS: Sodium, Urine 21.3 mEq/L
--- NOTE | 2017-02-28 15:06 | Discharge Summary ---
<Mil Dwyer - Last Filed: 02/28/17 15:49> Date of Encounter: 02/28/17 Time of Encounter: 15:03 - Discharge Diagnosis (1) Multifocal pneumonia Priority: Primary Status: Acute (2) Acute kidney injury superimposed on chronic kidney disease Priority: Secondary Status: Acute (3) Cirrhosis of liver Priority: Secondary Status: Chronic Comments: cryptogenic cirrhosis Qualifiers: Hepatic cirrhosis type: unspecified hepatic cirrhosis Ascites presence: with ascites Qualified Code(s): K74.60 - Unspecified cirrhosis of liver (4) Anemia Priority: Secondary Status: Chronic Qualifiers: Anemia type: unspecified type Qualified Code(s): D64.9 - Anemia, unspecified (5) Ascites Priority: Secondary Status: Acute Qualifiers: Ascites type: other type Qualified Code(s): R18.8 - Other ascites (6) Goals of care, counseling/discussion Priority: Secondary Status: Acute (7) Atrial fibrillation Priority: Secondary Status: Chronic Qualifiers: Atrial fibrillation type: chronic Qualified Code(s): I48.2 - Chronic atrial fibrillation (8) DVT prophylaxis Priority: Secondary Status: Acute - Discharge Medications Home Medications: Albuterol Sulfate [Ventolin Hfa] 18 gm IH Q4HR PRN 02/22/17 [History] Amlodipine Besylate 10 mg PO DAILY 02/22/17 [History] Apixaban [Eliquis] 5 mg PO BID 02/22/17 [History] Atorvastatin Calcium [Lipitor] 20 mg PO DAILY 02/22/17 [History] Budesonide/Formoterol 160/4.5 [Symbicort 160/4.5] 2 puff IH BIDR 02/22/17 [ History] Cetirizine HCl [Zyrtec] 10 mg PO DAILY 02/22/17 [History] FLUoxetine HCl [Prozac] 40 mg PO DAILY 02/22/17 [History] Fluorouracil [Efudex] 1 gm TP BID 02/22/17 [History] Fluticasone Propionate Nasal [Flonase] 2 mcg NS DAILY 02/22/17 [History] Furosemide [Lasix] 20 mg PO BID 02/22/17 [History] Metoprolol [Lopressor] 25 mg PO BID 02/22/17 [History] Sotalol [Betapace] 80 mg PO Q12HR 02/22/17 [History] Spironolactone [Aldactone] 50 mg PO DAILY 02/22/17 [History] Tamsulosin [Flomax] 0.4 mg PO DAILY 02/22/17 [History] Allergies/Adverse Reactions: 3 Allergy/AdvReac Type Severity Reaction Status Date / Time naproxen Allergy Intermediate BLISTERS Verified 02/22/17 20:29 Procedures/tests Complete & Pending: Procedures Performed prior 72 hours Category Date Time Status US liver [US] Routine Exams 02/28/17 09:00 Completed US retroperitoneal limited [US] Routine Exams 02/28/17 09:13 Draft Date of admission: 02/22/17 19:45 Primary care physician: Jose Alberto Benton CNP Consults: 02/22/17 20:26 Consult to Interventional Radiology [CONS] Routine Consulting Provider: Radiology Interventional Cols Reason for Consult: paracentesis Call Completed: No 02/23/17 11:00 Consult to Nephrology [CONS] Routine Consulting Provider: Kidney Diana/FLAVIA/SID/KAHLIL Reason for Consult: Likely hepatorenal syndrome, ADRIEN on unknown CKD Call Completed: Yes 02/25/17 08:32 Consult to Occupational Therapy [CONS] Stat Comment: Evaluate, develop and implement POC Reason for Consult: placement goals Consult to Physical Therapy [CONS] Stat Comment: Evaluate, develop and implement POC Reason for Consult: placement goals 02/26/17 09:56 Consult to Rheumatology Nurse [CONS] Routine Reason for SW Consult: ECF placement 02/26/17 16:38 Consult to Palliative Care [CONS] Routine Comment: Consulting Provider: Palliative Care [place] Reason for Consult: Cirrhosis, liver mass Call Completed: No Discharging clinician: iMl Dwyer Anticipated date of discharge: 02/28/17 - Patient Status Disposition: Transfer Critical Access Hosp Condition: Fair Functional capacity at discharge: bed bound Overall status at discharge: patient is not back to baseline - Discharge Instructions Follow Up With: Jose Alberto Benton CNP [Primary Care Provider] - (Patient is going to [facility] no PCP appointment needed) - Diet and Activity Activity: increase activity as tolerated Diet: low salt diet Hospital course: Mr. Romero is a 66 year old male who was transferred from [place] for worsening shortness of breath and abdominal pain. CT demonstrated multifocal pneumonia and also cryptogenic cirrhosis with an infiltrative mass in the liver. He does follow with a parcel carrier at [facility] and was going to have his liver mass evaluated there. His creatinine was also elevated at 3.2 upon admission where his baseline was under 2. This was possibly due to hepatorenal syndrome. Nephrology was consulted and recommended on holding his diuretics to prevent further kidney damage. He did have a large amount of ascites that was drained by IR on 02/23 where 15 L of fluid was collected. He received albumin after the procedure as his blood pressure was borderline low, and his Lasix was held. He did feel relief of his abdominal pain after the procedure and his breathing improved as well. Patient did continue to complain of diarrhea which was chronic for him and also a poor appetite despite starting on Megace. Patient did receive 6 days of Zosyn during admission and did not have any fever , tachycardia or leukocytosis during his stay. Blood culture remain negative. He does have a poor prognosis given that his MELD score was 23. Palliative care was consulted and patient did confirm his DNR - CCA/DNI code status but did still want to aggressively pursue treatment for his liver mass. He was not interested in hospice. Liver ultrasound revealed an echogenic Today, patient has no complaints of pain, breathing, fever, chills, or nausea. Since he does want to have comprehensive management of his liver, he will be transferred to [facility] as his parcel carrier is there. - Time Spent with Patient Total time spent providing and/or coordinating discharge services: Greater than 30 minutes - Constitutional Vitals: Temp Pulse Resp BP Pulse Ox 97.9 F 73 18 91/61 95 02/28/17 11:54 02/28/17 11:54 02/28/17 11:54 02/28/17 11:54 02/28/17 11:54 General appearance: Present: cooperative, no acute distress, obese, answers questions appropriately - Head Head exam: Present: atraumatic, normocephalic - Eye Eye exam: Present: PERRL, conjuntiva pink, sclera anicteric - Neck Neck exam general surgery: Present: supple, trachea midline. Absent: lymphadenopathy - Respiratory Respiratory exam: Present: CTAB. Absent: accessory muscle use, rales, rhonchi, wheezes - Cardiovascular Cardiovascular exam: Present: RRR, +S1, +S2. Absent: diastolic murmur, gallop, rubs, systolic murmur - GI/Abdominal GI/Abdominal exam: Present: distended, normal bowel sounds, soft, no peritoneal signs. Absent: tenderness - Extremities Exam Extremities exam: Present: pedal edema, warm, radial pulses palpable and symmetrical. Absent: calf tenderness, cyanotic - Neurological Exam Neurological exam: Present: alert, oriented X3, no focal deficits. Absent: pronater drift, facial droop, speech deficit - Skin Skin exam: Present: dry, intact - VTE Documentation of Mechanical Device: Intermittent pneumatic compression device <Billy Jose - Last Filed: 02/28/17 19:13> Date of Encounter: 02/28/17 - Discharge Diagnosis (1) Multifocal pneumonia Status: Acute (2) Cirrhosis of liver Status: Chronic Qualifiers: Hepatic cirrhosis type: unspecified hepatic cirrhosis Ascites presence: with ascites Qualified Code(s): K74.60 - Unspecified cirrhosis of liver (3) Ascites Status: Acute Qualifiers: Ascites type: other type Qualified Code(s): R18.8 - Other ascites (4) Acute kidney injury superimposed on chronic kidney disease Status: Acute (5) Atrial fibrillation Status: Chronic Qualifiers: Atrial fibrillation type: chronic Qualified Code(s): I48.2 - Chronic atrial fibrillation (6) DVT prophylaxis Status: Acute (7) Obesity (BMI 30-39.9) Status: Chronic Procedures/tests Complete & Pending: Procedures Performed prior 72 hours Category Date Time Status US liver [US] Routine Exams 02/28/17 09:00 Completed US retroperitoneal limited [US] Routine Exams 02/28/17 09:13 Draft Date of admission: 02/22/17 19:45 Primary care physician: Jose Alberto Benton CNP Consults: 02/22/17 20:26 Consult to Interventional Radiology [CONS] Routine Consulting Provider: Radiology Interventional Cols Reason for Consult: paracentesis Call Completed: No 02/23/17 11:00 Consult to Nephrology [CONS] Routine Consulting Provider: Kidney Diana/FLAVIA/SID/KAHLIL Reason for Consult: Likely hepatorenal syndrome, ADRIEN on unknown CKD Call Completed: Yes 02/25/17 08:32 Consult to Occupational Therapy [CONS] Stat Comment: Evaluate, develop and implement POC Reason for Consult: placement goals Consult to Physical Therapy [CONS] Stat Comment: Evaluate, develop and implement POC Reason for Consult: placement goals 02/26/17 09:56 Consult to Rheumatology Nurse [CONS] Routine Reason for SW Consult: ECF placement 02/26/17 16:38 Consult to Palliative Care [CONS] Routine Comment: Consulting Provider: Palliative Care [place] Reason for Consult: Cirrhosis, liver mass Call Completed: No Hospital course: Mr. Romero is a 66 year old male - Time Spent with Patient Total time spent providing and/or coordinating discharge services: - Constitutional Vitals: Temp Pulse Resp BP Pulse Ox 97.6 F 77 19 95/55 96 02/28/17 16:13 02/28/17 16:13 02/28/17 16:13 02/28/17 16:13 02/28/17 16:13 - Attending Attestation I conducted a face to face diagnostic evaluation of this patient and my medical decision-making was reviewed with the Resident Physician. I agree with the documented findings, disposition and treatment plan as described except to the extent set forth below: He is in no acute distress awake alert oriented. He has decision-making capacity and agrees with transfer to a tertiary care facility for further workup and care. He will be transferred to [facility] to be evaluated by a parcel carrier given his history of liver cirrhosis, liver mass and possibly hepatorenal syndrome. We did not have a parcel carrier on staff. I have spent 40 minutes coordinating this discharge. Billy Jose MD
[2017-02-28] MEDS ORDERED: Megestrol Acetate 400 MG/10 ML UDC PO ONE (16:00)
[2017-02-28 16:11] LABS: Alpha 2 Globulin (PEP) 0.67 g/dL (0.48-1.05); Beta Globulin (PEP) 0.42 g/dL (0.48-1.10)
[2017-02-28 16:16] VITALS: BP 95/55
[2017-02-28] MEDS ORDERED: Piperacillin/Tazobactam 3.375 GM/200 ML BAG IVPB SCH (21:00)
[2017-03-01 08:03] LABS: IFE Reflexed IFE Done; Immunoglobulin A 246 mg/dL (68-408); Immunoglobulin G 445 mg/dL (768-1632); Immunoglobulin M 22 mg/dL (35-263)
[2017-03-01 08:19] LABS: AFP Tumor Marker Non-Pregnant 44 ng/mL (0-9); Cancer Antigen-GI (CA 19-9) 98 U/mL (0-37)
[2017-03-01] MEDS ORDERED: Megestrol Acetate 400 MG/10 ML UDC PO SCH (09:00)
== END 2017-02-28 18:00 | disposition short-term general hospital (02) | DRG 139 ==
LOC: SUATTDRO 19:45 → ICNU 19:45 → 2NNU 21:32
PROVIDERS: ADMIT Internal Medicine; ATTEND Internal Medicine